=== PATIENT | male | born 1985 | race Caucasian/White ===

== ENCOUNTER 2022-02-04 08:12 | Outpatient (REF) | payer OTHER, SELFPAY ==
--- NOTE | 2022-02-04 08:17 | EEG_ITS ---
This is a 16-channel EEG with an EKG lead. The patient is reported awake during the tracing. Background EEG rhythm is low amplitude, mostly beta with some posterior 10 hertz low amplitude alpha with no obvious asymmetry or paroxysmal tendency. Photic stimulation does not produce any significant abnormality. Hyperventilation is not performed. Cardiac lead does not reveal any significant abnormality. IMPRESSION: Unremarkable EEG. MD JOSE MIGUEL Stanton/SAPNA / [id number]
== END 2022-02-04 08:13 | disposition home or self-care (01) ==
LOC: HO.NEURO 08:12
PROVIDERS: PCP Internal Medicine; Visit Provider Psychiatry & Neurology Neurology
DX: R41.89 Other symptoms and signs involving cognitive functions and awareness (principal); U09.9 Post COVID-19 condition, unspecified
CPT/HCPCS: 95816

== ENCOUNTER 2022-02-09 08:25 | Outpatient (REF) | payer OTHER, SELFPAY ==
--- NOTE | ~2022-02-09 | MR_ITS ---
EXAMINATION: MR BRAIN WITHOUT CONTRAST CLINICAL INFORMATION: Brain fog COMPARISON: None TECHNIQUE: Multiplanar multisequence MR imaging of the brain was obtained without intravenous contrast. FINDINGS: There is no acute infarct on diffusion-weighted imaging. There is no intracranial hemorrhage on iron-sensitive imaging. No extra-axial collection or mass effect/herniation. Normal parenchymal signal characteristics. No hydrocephalus. The ventricles are normal in morphology and size. The major flow voids at the skull base are preserved. The midline structures are normal. The cerebellar tonsils are normally positioned. The craniocervical junction is normal. Marrow signal is within normal limits. The visualized soft tissues are without significant abnormality. No signal abnormality within the paranasal sinuses or within the mastoid air cells. MR/MR head/brain wo con IMPRESSION: Unremarkable noncontrast MRI of the brain.
== END 2022-02-09 08:26 | disposition home or self-care (01) ==
LOC: HO.MRI 08:25
PROVIDERS: Visit Provider Psychiatry & Neurology Neurology
DX: R41.89 Other symptoms and signs involving cognitive functions and awareness (principal); U09.9 Post COVID-19 condition, unspecified
CPT/HCPCS: 70551

== ENCOUNTER → 2022-04-25 14:31 | Outpatient (BNVA) | payer OTHER, SELFPAY | PROVIDERS: PCP Internal Medicine; Visit Provider Psychiatry & Neurology Neurology | DX: R41.89 Other symptoms and signs involving cognitive functions and awareness (principal); U09.9 Post COVID-19 condition, unspecified ==

== ENCOUNTER 2023-05-29 12:03 | Outpatient (AMB) | payer OTHER, SELFPAY ==
--- NOTE | 2023-05-29 12:09 | AM.OFFWIN_ITS ---
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) Intake Note: Patient here for right eye redness that has been present for about 3-4 days and states he has been waking up with it crusted shut Patient Tobacco Use Status: Former Tobacco user Quit Date: 07/05/2007 Allergies acetaminophen [From Vicodin] Allergy (Mild, Verified 05/29/23 12:33) Itching hydrocodone [From Vicodin] Allergy (Mild, Verified 05/29/23 12:33) Itching Medication List - Last Reconciled 05/29/23 by Harvey Montilla MD albuterol 90 mcg/actuation mcg inhalation PRN esomeprazole magnesium (Nexium 24HR) 20 mg PO DAILY Do you need a note to return to daycare/school/sports/work: No 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 Patient is complaining of discharge from the right eye with irritation. Does not wear contact lenses. No symptoms of running nose or congestion. [facility] Medical History ADD (attention deficit disorder) Anxiety PTSD (post-traumatic stress disorder) Surgical History H/O wisdom tooth extraction Family History Mother Breast cancer SLE (systemic lupus erythematosus) Alzheimer disease Colon cancer Father Hypertension Attention deficit disorder Maternal Grandfather Lung cancer Paternal Grandfather Lung cancer Maternal Uncle Colon cancer Social History Alcohol intake: current Alcohol intake frequency: a few times a month Patient Tobacco Use Status: Former Tobacco user Quit Date: 07/05/2007 Physical Exam Vital Signs: Last Vital Signs Pulse 66 05/29/23 12:10 BP 112/78 05/29/23 12:10 Pulse Ox 97 05/29/23 12:10 Oxygen Delivery Method Room Air 05/29/23 12:10 Eyes Other: Right eye: Lower eyelid: Small ulcerated area on the temporal side. Tarsal conjunctiva is congested. Assessment & Plan Assessment & Plan (1) Hordeolum externum right eye, unspecified eyelid: Code(s): H00.013 - Hordeolum externum right eye, unspecified eyelid Plan: Erythromycin ophthalmic ointment. Applied twice a day. If symptoms not better to follow-up here. Coding Level of Care Code Est Pt Level 3 (68563) Diagnoses Hordeolum externum right eye, unspecified eyelid H00.013
[2023-05-29 12:10] VITALS: BP 112/78; PULSE 66; O2SAT 97
== END 2023-05-29 13:13 | disposition home or self-care (01) ==
PROVIDERS: PCP Internal Medicine; Visit Provider Internal Medicine
DX: H00.013 Hordeolum externum right eye, unspecified eyelid (principal)
CPT/HCPCS: 99213

== ENCOUNTER 2024-07-24 07:59 | Outpatient (AMB) | payer OTHER, SELFPAY ==
--- OUTSIDE RECORDS SUMMARY | 2024-07-24 08:02 | XMS_ITS | Encounter Summary ---
Author Name [facility] [place] [facility] [place] Address [address] [place] [address] Care Team Providers Care Retail Coverage Merchandiser Name Role Phone OSCAR MARQUEZ Primary Care Provider Unavailabl e Insurance Providers: All historical and current Section Date Range: From patient's date of to the date document was created. This section includes the names of all active insurance providers for the patient. Insurance Provider Type of Coverage Plan Name Start of Policy Coverage End of Policy Coverage Group Number Member ID Insurance Provider's Telephone Number Policy Guillory's Name Patient's Relationship to Policy Guillory [employer] ([id number]) PRESCRIPT ION RX Mar 27, 2021 [facility] [id number] Jessica LEIGH ENJAMIN PATIENT [employer] ([id number]) PRESCRIPT ION Nov 08, 2016 TA [id number] Jessica LEIGH ENJAMIN PATIENT [facility] MEDICAID [place]ID [place] [facility] Aug 25, [id number] Jessica LEIGH ENJAMIN PATIENT [facility] [place]ICAID [place] [facility] Aug 25, [id number] Jessica LEIGH ENJAMIN PATIENT [facility] MEDICAID [facility] Dec 19, 2018 [id number] Jessica LEIGH ENJAMIN PATIENT MEDICARE (WNR) MEDICARE (M) PART A Aug 25, 2010 PART A [id number] Jessica LEIGH PATIENT MEDICARE (WNR) MEDICARE (M) PART B Aug 25, 2010 PART B [id number] Jessica LEIGH PATIENT [facility] PHUONG CARTER DT Mar 27, 2022 [id number] Jessica LEIGH PATIENT [facility] AIDA BOWENS H Mar 27, 2021 [id number] Jessica LEIGH ENKARISSA PATIENT [facility] POINT OF SERVICE ALISA ESPINOSA T Mar 27, 2021 [id number] [phone] Jessica LEIGH PATIENT Selected Encounter This section includes the information on record at [place] for the Encounter. Date/Time Encounter Type Encounter Description Reason Provider Source May 16, 2024 12:00 PM OFF/OP EST JULY X REQ PHY/QHP EKG ICD-10-CM Z82.49 Family hx of ischem heart dis and oth dis of the JACQUELINE Young [facility] Encounter Template Text not used by [place] Assessments - Encounter Diagnoses This section includes the primary and secondary diagnoses documented for the Encounter. Date/Time Primary/Secondary Diagnosis Diagnosis Name Provider Source May 16, 2024 12:36 PM PRIMARY Family hx of ischem heart dis and oth dis of the MALCOLM Man Plan of Treatment: Future Appointments (+ 6 months) and Future Tests (+/- 45 days) The Plan of Treatment section includes future care activities for the patient from all [place] treatmentfacilities. This section includes future appointments and future orders which are active, pending or scheduled. Future Appointments This section includes appointments that were scheduled to occur 6 months from the date of the Encounter, up to a maximum of 20 appointments. The data comes from all [place] treatment facilities. Appointment Date/Time Appointment Type Appointme nt Facility Name Jun 05, 2024 09:00 AM AMBULATORY - PS[facility]ATRY [facility] Jul 03, 2024 09:00 [facility] July 31, 2024 09:00 AM [facility] August 01, 2024 07:30 AM AMBULATORY - REHAB MEDICIN [facility] [place] Aug 28, 2024 09:00 AM AMBULATORY - [facility] [place] [facility] Sep 09, 2024 02:00 PM AMBULATORY - NONE [facility] [place] Sep 17, 2024 03:30 PM AM[place]UL[place]ORY [place] [facility] Sep 17, 2024 03:30 PM [facility] [place] Active, Pending, and Scheduled Orders This section includes a listing of several types of active, pending, and scheduled orders, including clinic medications orders, diagnostic test orders, procedure orders and consult orders; where thestart date of the order is 45 days before the date of the Encounter or 45 days after the date of the Encounter. The data comes from all [place] treatment facilities. Test Date/Time Test Type Test Details Facility Name Apr 06, 2024 12:00 AM Laboratory - Chemistry Order MICROALBUMIN CREATININE RATIO PANEL URINE (RANDOM) [facility] Apr 06, 2024 12:00 AM Laboratory - Chemistry Order URINALYSIS URINE [facility] Jun 26, 2024 10:08 AM Consult Order VISN 1 [facility]IATRY OUTPT IFC CT Cons Respiratory Support Technician's Choice [facility] [place] Lab Results: +/- 30 days of the encounter This section includes the Chemistry and Hematology Lab Results on record with [place] for the patient. Radiology Reports and Pathology Reports are provided separately, in subsequent sections. Lab Results This section contains the Chemistry/Hematology Results that were resulted 30 days before or 30 daysafter the date of the Encounter. Date/Time Source Result Type Result - Unit Interpretation Reference Range Specimen Type Comment May 16, 2024 01:49 PM [place] CALCIUM SERUM Specimen Type: SERUM No comment entered. Ordering Provider: OSCAR MARQUEZ Report Released Date/Time: Mar 06, 2024 02:12 PM Reporting Lab: [address] [address] Performing Lab: [address] [address] CALCIUM 8.9 mg/dL 8.5-10.2 May 16, 2024 01:49 PM [place] URIC ACID SERUM Sp ecimen Type: SERUM No comment entered. Ordering Provider: OSCAR MARQUEZ Report Released Date/Time: Mar 06, 2024 02:12 PM Reporting Lab: [address] [address] Performing Lab: [address] [address] URIC ACID 5.6 mg/dL 3.5-7.2 May 16, 2024 01:49 PM [place] VITAMIN D (25-OH) SERUM Specimen Type: SERUM No comment entered. Ordering Provider: OSCAR MARQUEZ Report Released Date/Time: Mar 06, 2024 02:12 PM Reporting Lab: [address] [address] Performing Lab: [address] [address] VITAMIN D (25-OH) 31 ng/mL 20-50 May 16, 2024 01:49 PM [place] VITAMIN B12 SERUM Specimen Type: SERUM No comment entered. Ordering Provider: OSCAR MARQUEZ Report Released Date/Time: Mar 06, 2024 02:12 PM Reporting Lab: [address] [address] Performing Lab: [address] [address] VITAMIN B12 486 pg/mL 200-900 May 16, 2024 01:49 PM [place] FERRITIN SERUM Sp ecimen Type: SERUM No comment entered. Ordering Provider: OSCAR MARQUEZ Report Released Date/Time: Mar 06, 2024 02:12 PM Reporting Lab: [address] [address] Performing Lab: [address] [address] FERRITIN 182 ng/mL 20-300 May 16, 2024 01:49 PM [place] HEMOGLOBIN A1C PANEL BLOOD Specimen T ype: BLOOD Comment: Values obtained from A1C measurements can vary. For atypical A1C assays, a reported value of 7.0 could actually be between 6.72 and 7.28 if measured by a reference method. A reported value of 9.0 could actually be between 8.73 and 9.27. Ref: http://www.ngsp.org/CAPdata.asp Ordering Provider: OSCAR MARQUEZ Report Released Date/Time: Mar 06, 2024 02:12 PM Reporting Lab: [facility] [address] [address] Performing Lab: [facility] [address] [address] HEMOGLOBIN A1C 4.5 4.0-5.6 May 16, 2024 01:49 PM [place] TSH SERUM Sp ecimen Type: SERUM No comment entered. Ordering Provider: OSCAR MARQUEZ Report Released Date/Time: Mar 06, 2024 02:12 PM Reporting Lab: [address] [address] Performing Lab: [facility] [address] [address] TSH 1.17 u[IU]/mL 0.35-5.00 May 16, 2024 01:49 PM [place] BNP (Natriuretic Peptide Brain) PLASMA Specimen Type: PLASMA No comment entered. Ordering Provider: OSCAR MARQUEZ Report Released Date/Time: Mar 06, 2024 02:12 PM Reporting Lab: [facility] [address] [address] Performing Lab: [facility] [address] [address] BNP (Natriuretic Peptide Brain) < 10.0 pg/mL 10-100 May 16, 2024 01:49 PM [place] BASIC METABOLIC PANEL (fasting) SERUM Specimen Type: SERUM No comment entered. Ordering Provider: OSCAR MARQUEZ Report Released Date/Time: Mar 06, 2024 02:12 PM Reporting Lab: [facility] [address] [address] Performing Lab: [facility] [address] [address] UREA NITROGEN 14 mg/dL 7-25 GLUCOSE 81 mg/dL 65-100 SODIUM 139 mmol/L 135-145 POTASSIUM 4.4 mmol/L 3.5-5.0 CHLORIDE 106 mmol/L 100-110 CO2 26 meq/L 20-30 CALCIUM 8.9 mg/dL 8.5-10.2 CREATININE, Serum 1.30 mg/dL 0.50-1.40 eGFR(CKD-EPI 2020) 71 mL/min >60 May 16, 2024 01:49 PM [place] LIPID PANEL FASTING SERUM Specimen Ty pe: SERUM No comment entered. Ordering Provider: OSCAR MARQUEZ Report Released Date/Time: Mar 06, 2024 02:12 PM Reporting Lab: [address] [address] Performing Lab: [address] [address] CHOLESTEROL 197 mg/dL TRIGLYCERIDE 68 mg/dL 0-150 LDL calculated 138 mg/dL H 0-129 CHOL/HDL 4.4 HDL CHOLESTEROL 45 mg/dL 40-60 May 16, 2024 01:49 PM [place] LIVER FUNCTION SERUM Specimen Type: SERUM No comment entered. Ordering Provider: OSCAR MARQUEZ Report Released Date/Time: Mar 06, 2024 02:12 PM Reporting Lab: [address] [address] Performing Lab: [address] [address] PROTEIN,TOTAL 7.4 g/dL 6.0-8.3 ALBUMIN 4.3 g/dL 3.5-5.0 ALKALINE PHOSPHATASE 63 U/L 40-150 AST 24 U/L 5-34 ALT 32 U/L BILIRUBIN, TOTAL 0.6 mg/dL 0.2-1.2 May 16, 2024 01:49 PM [place] CBC AND DIFF (AUTO) BLOOD Specimen Ty pe: BLOOD No comment entered. Ordering Provider: OSCAR MARQUEZ Report Released Date/Time: Mar 06, 2024 02:12 PM Reporting Lab: [address] [address] Performing Lab: [address] [address] WBC 7.11 10*3/uL 4.50-11.00 RBC 5.16 10*6/uL 4.23-5.66 HGB 16.2 g/dL 12.8-17 HCT 44.8 39.2-50.4 MCV 86.8 fL 82-99 MCHC 36.2 g/dL H 30.8-35.1 PLT 278 10*3/uL 140-360 RDW-CV 12.6 12.0-16.0 MONO, ABS 0.60 10*3/uL 0.30-1.10 MCH 31.4 pg 26.2-32.6 NEUT % 68.5 43.7-75.8 LYMPH % 21.0 14.0-42.3 MONO % 8.4 5.1-13.7 EOS % 1.1 0.4-6.8 BASO % 0.6 0.1-2.0 NEUT, ABS 4.87 10*3/uL 2.20-7.60 LYMPH, ABS 1.49 10*3/uL 1.00-3.20 EOS, ABS 0.08 10*3/uL 0.03-0.44 BASO, ABS 0.04 10*3/uL 0.01-0.13 IMMATURE GRAN % 0.4 0.0-0.7 IMMATURE GRAN, ABS 0.03 10*3/uL 0.00-0.0 6 NRBC % 0.0 0.0-0.0 NRBC, ABS 0.00 10*3/uL 0.00-0.00 Vital Signs: All taken on the encounter date This section contains inpatient and outpatient Vital Signs collected on the date of the Encounter. Date/Time Temperature Pulse Blood Pressure Respiratory Rate SP02 Pain Height Weight Body Mass Index Source May 16, 2024 12:23 PM 73 119/75 98 172.6 29 [place] Social History: Smoking Status (Most current) and Tobacco Use (All prior to encounter date) This section includes the most current, and the historical, smoking and tobacco- related health factors from the [place] facility where the Encounter took place. Current Smoking Status This section includes the most current smoking, or tobacco-related health factor, from the [place] facility where the Encounter took place. Date/Time Current Smoking Status Comment Claire kerr Mar 06, 2024 02:00 PM [place]-TOBACCO NEVER USED CIGARETTES [place] Tobacco Use History This section includes a history of the smoking, or tobacco-related health factors, that were collected on or before the date of the Encounter. The data comes from the [place] facility where the Encounter took place. Date/Time Smoking Status/Tobacco Use Comment F acility Mar 06, 2024 02:00 PM VA-TOBACCO NEVER U SED OTHER TYPE [place] Feb 08, 2023 08:00 AM VA-TOBACCO FORMER USER [place] Feb 08, 2023 08:00 AM VA-TOBACCO QUIT 5 TO < 15 YRS [place] Jun 18, 2020 09:00 AM VA-TOBACCO FORMER USER [place] Jun 18, 2020 09:00 AM VA-TOBACCO QUIT 15 YRS OR MORE [place] August 01, 2018 03:38 PM VA-TOBACCO NEVER USED [place] Jul 06, 2017 10:33 AM QUIT TOBACCO USE > 7 YEARS AGO [place] Jun 09, 2016 08:41 AM QUIT TOBACCO USE 1 -7 YEARS AGO [place] Apr 01, 2015 09:41 AM QUIT TOBACCO USE > 7 YEARS AGO [place] August 05, 2013 02:26 PM QUIT TOBACCO USE 1 -7 YEARS AGO [place] Jan 24, 2013 02:38 PM QUIT TOBACCO USE 1 -7 YEARS AGO [place] Feb 23, 2012 03:09 PM QUIT TOBACCO USE 1 -7 YEARS AGO pt quite smoking cigaretts in 2007. [place] Mar 11, 2011 02:33 PM CURRENT SMOKER Patient smokes one pack of cigerets every three months. [place] Mar 11, 2011 02:33 PM QUIT TOBACCO USE 1 -7 YEARS AGO [place] Mar 30, 2009 08:38 AM QUIT TOBACCO USE 1 -7 YEARS AGO [place] Mar 11, 2009 01:41 PM QUIT TOBACCO USE I N PAST YEAR [place] Feb 07, 2008 02:05 PM QUIT TOBACCO USE 1 -7 YEARS AGO [place] Encounter Notes: All associated encounter notes This section contains the clinical notes associated to the Encounter. Date/Time Encounter Note(s) Provider Source May 16, 2024 12:36 PM CARDIOLOGY DIAGNOS TIC STUDY CONSULT: LOCAL TITLE: CONSULT REPORT/EKG STANDARD TITLE: CARDIOLOGY DIAGNOSTIC STUDY CONSULT DATE OF NOTE: MAY 16, 2024@12:36 ENTRY DATE: MAY 16, 2024@12:36:34 AUTHOR: MALCOLM FIGUEROA COSIGNER: URGENCY: STATUS: COMPLETED EKG tracing was performed for diagnosis of family history of CAD ordered by HAYES Carmona. Order Information To Service: EKG TRACING/SPOPC OUTPT From Service: [facility] PACT 3 PA NANI Requesting Provider: OSCAR MARQUEZ Service is to be rendered on an OUTPATIENT basis Place: Respiratory Support Technician's choice Urgency: Routine Clinically Ind. Date: Apr 06, 2024 DST ID: Orderable Item: EKG TRACING/SPOPC OUTPT Consult: Consult Request Provisional Diagnosis: Encounter for General Adult Medical Examination without Abnormal Findings(ICD-10-CM Z00.00) Reason For Request: Reason for EKG: family history [place] Age:38 [place] Height:65 in [165.1 cm] (06/18/2020 09:06) Weight:171 lb [77.56 kg] (03/06/2024 13:59) Inter-facility Information This is not an inter-facility consult request. [place] tolerated procedure well and result presented to Dr Omalley for review at time of provider visit today. /atif/ DAMIEN GARCIA RN-BC REGISTERED NURSE Signed: 05/16/2024 12:37 MALCOLM FIGUEROA ROWAN May 16, 2024 12:30 PM PREVENTIVE MEDICIN E NURSING NOTE: LOCAL TITLE: CLINICAL REMINDERS/NURSING STANDARD TITLE: PREVENTIVE MEDICINE NURSING NOTE DATE OF NOTE: MAY 16, 2024@12:30 ENTRY DATE: MAY 16, 2024@12:30:50 AUTHOR: CLEMENTE BRADSHAW EXP COSIGNER: URGENCY: STATUS: COMPLETED Pneumococcal Conjugate Vaccine (PCV15/PCV20): Refuses PCV vaccine Immunization: PNEUMOCOCCAL CONJUGATE, UNSPECIFIED FORMULATION Refusal Reason: PATIENT DECISION Patient refuses all immunization(s) in the PneumoPCV group Date Documented: 05/16/24 12:31 Td / Tdap Immunization: The patient declines to receive the recommended dose of Td/Tdap vaccine. Immunization: TD(ADULT) UNSPECIFIED FORMULATION Refusal Reason: PATIENT DECISION Patient refuses all immunization(s) in the Td group Date Documented: 05/16/24 12:31 COVID-19 Immunization: Refused Moderna Monovalent COVID-19 vaccine Immunization: COVID-19 (MODERNA), MRNA, LNP-S, PF, 50 MCG/0.5 ML (AGES 12+ YEARS) Refusal Reason: VET STATED ALREADY HAD VACCINE Patient refuses all immunization(s) in the COVID-19 group Date Documented: 05/16/24 12:31 /es/ CLEMENTE BRADSHAW LPN Licensed Practical Nurse Signed: 05/16/2024 12:32 CLEMENTE BRADSHAWFIELD
--- OUTSIDE RECORDS SUMMARY | 2024-07-24 08:02 | XMS_ITS | Encounter Summary ---
Author Name [facility] [place] Address [address] [place] [address] Care Team Providers Care Textile Conservator Name Role Phone OSCAR MARQUEZ Primary Care [...] Patient's Relationship to Policy Guillory [facility] ([id number]) PRESCRIPT ION RX Mar 27, 2021 [facility] [id number] [phone] Jessica LEIGH ENJAMIN PATIENT [facility] ([id number]) PRESCRIPT ION Nov 08, 2016 TA [id number] Jessica LEIGH ENJAMIN PATIENT [facility] [place]ICAID [place]ID [place] [facility] Aug 25, [id number] Jessica LEIGH ENJAMIN PATIENT [facility] [place]ID [place] [facility] Aug 25, [id number] Jessica LEIGH ENJAMIN PATIENT [facility] MEDICAID [facility] Dec 19, 2018 [id number] Jessica LEIGH ENJAMIN PATIENT MEDICARE (WNR) MEDICARE (M) PART A Aug 25, 2010 PART A [id number] [phone] Jessica LEIGH PATIENT MEDICARE (WNR) MEDICARE (M) PART B Aug 25, 2010 PART B [id number] 49A [phone] Jessica LEIGHMIN PATIENT [facility] PHUONG CARTER DT Mar 27, 2022 [id number] Jessica LEIGHMIN PATIENT [facility] AIDA BOWENS H Mar 27, 2021 [id number] [phone] Jessica LEIGH ENGMMIN PATIENT [facility] POINT OF SERVICE ALISA ESPINOSA T Mar 27, 2021 [id number] [phone] Jessica LEIGH PATIENT Selected Encounter This section includes the information on record at [place] for the Encounter. Date/Time Encounter Type Encounter Description Reason Provider Source Aug 29, 2023 11:00 AM EXERCISE CLASS HEALTH/WELLBEING [facility] ICD-10-CM Y93.42 Activity, SALEEM Winkler IHReddy Encounter Template Text not used by CT Assessments - Encounter Diagnoses This section includes the primary and secondary diagnoses documented for the Encounter. Date/Time Primary/Secondary Diagnosis Diagnosis Name Provider Source Aug 29, 2023 03:12 PM PRIMARY Activity, ISAEL Winkler [facility] [place] [facility] Plan of Treatment: Future Appointments (+ 6 months) and Future Tests (+/- 45 days) The Plan of Treatment section includes future care activities for the patient from all CT treatmentfacilities. This section includes future appointments and future orders which are active, pending or scheduled. Future Appointments This section includes appointments that were scheduled to occur 6 months from the date of the Encounter, up to a maximum of 20 appointments. The data comes from all CT treatment facilities. Appointment Date/Time Appointment Type Appointme nt Facility Name Aug 30, 2023 08:00 AM AMBULATORY - PSYCHIATRY [facility] [place] [facility] Sep 07, 2023 01:00 PM AMBULATORY - MEDICINE [facility] [place] [facility] Sep 14, 2023 01:00 PM AM[facility]ULATORY [facility]ICINE [facility] [place] [facility] Sep 26, 2023 11:00 AM AMBULATORY - MEDICINE [facility] C [facility] [place] [facility] Sep 27, 2023 08:00 AM AMBULATORY - PS[facility]CHIATRY [facility] [place] [facility] Oct 12, 2023 01:00 PM AMBULATORY - MEDICINE [facility] [place] [facility] Oct 13, 2023 10:00 AM AMBULATORY - MEDICINE [facility] [place] [facility] Oct 13, 2023 11:30 AM AMBULATORY - PS[facility]CHIATRY [facility] [place] [facility] Oct 27, 2023 04:00 PM AMBULATORY - MEDICINE CT C [facility] [place] [facility] Nov 01, 2023 08:00 AM AMBULATORY - PS[facility]CHIATRY [facility] [place] [facility] Nov 29, 2023 08:00 AM AMBULATORY - PS[facility]CHIATRY [facility] [place] [facility] Jan 03, 2024 08:00 AM AMBULATORY - PSYCHIATRY [facility] [place] [facility] Jan 11, 2024 11:00 AM AMBULATORY - PS[facility]CHIATRY [facility] [place] [facility] Jan 31, 2024 09:00 AM AMBULATORY - PSYCHIATRY [facility] [place] [facility] Feb 28, 2024 09:00 AM [facility] Social History: Smoking Status (Most current) and Tobacco Use (All prior to encounter date) This section includes the most current, and the historical, smoking and tobacco- related health factors from the [place] facility where the Encounter took place. Current Smoking Status This section includes the most current smoking, or tobacco-related health factor, from the [place] facility where the Encounter took place. Date/Time Current Smoking Status Comment [facility] Jun 08, 2007 09:39 AM QUIT TOBACCO USE 1 -7 YEARS AGO [facility] Tobacco Use History This section includes a history of the smoking, or tobacco-related health factors, that were collected on or before the date of the Encounter. The data comes from the CT facility where the Encounter took place. Date/Time Smoking Status/Tobac co Use Comment Facility Mar 13, 2006 10:06 AM QUIT TOBACCO USE IN PAST YEAR smoked 2-3 cigarettes a day but quit 2 months ago [facility] Encounter Notes: All associated encounter notes This section contains the clinical notes associated to the Encounter. Date/Time Encounter Note(s) Provider Source Aug 29, 2023 11:00 AM RECREATIONAL THERA PY NOTE: LOCAL TITLE: YOGA WELLBEING STANDARD TITLE: RECREATIONAL THERAPY NOTE DATE OF NOTE: AUG 29, 2023@11:00 ENTRY DATE: AUG 29, 2023@15:06:41 AUTHOR: DELFINO DUENAS COSIGNER: URGENCY: STATUS: COMPLETED Group Yoga Class Total time: 60 minutes Class Focus: Breath awareness, mindful movement, relaxation, and gratitude to balance the nervous system and enhance overall well-being. The Practice: 3-part breath Pranayama for utilizing more of the lungs and calming the nervous system; postures that included, but were not limited to, moving warm-up, half sun salutation, sun salutation A variation, tree, triangle pose, wide leg forward bend, [place] 2, Extended Side Angle Pose, Intense Side Stretch, [place] 1, plank, cobra, locust, downward facing dog, wisdom pose, contralateral limb raises, head to knee pose, bridge, reclined twist, and knees to chest; Systematic Relaxation; and Gratitude. Modifications were geared toward the [place]'s individual needs and preferences. [place] was one of ten participants in Group Yoga. He practiced all the postures offered, using yoga blocks and a yoga strap for support as needed. He was attentive to his breath throughout the session. will return to class as his schedule allows. /atif/ DELFINO DUENAS [id number] Land Development Manager Signed: 08/29/2023 15:[address] [facility]
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
--- OUTSIDE RECORDS SUMMARY | 2024-07-24 08:02 | XMS_ITS | Continuity of Care Document ---
Author Name Radha Diaz Address [address] [place], [place] [id number] [place] [address] Organization Unknown Address [address] [place] [address] Medications No known medications Problems No known problems
--- OUTSIDE RECORDS SUMMARY | 2024-07-24 08:03 | XMS_ITS | Encounter Summary ---
Author Name [facility] [place] Organization [facility] [place] Address [address] [place] [id number] Care Team Providers Care Board Mixer Tender Name Role Phone OSCAR MARQUEZ Primary Care [...] Patient's Relationship to Policy Guillory [employer] [facility] ([id number]) PRESCRIPT ION RX Mar 27, 2021 [facility] [id number] Jessica LEIGH ENJAMIN PATIENT [employer] [facility] ([id number]) PRESCRIPT ION Nov 08, 2016 TA [id number] Jessica LEIGH ENJAMIN PATIENT [facility] MEDICAID [facility]ICAID [facility] Aug 25, [id number] Jessica LEIGH ENJAMIN PATIENT [facility] MEDICAID [place] DEPT HUMAN [facility] Aug 25, [id number] Jessica LEIGH ENJAMIN PATIENT [facility] MEDICAID [facility] Dec 19, 2018 [id number] Jessica LEIGH ENJAMIN PATIENT MEDICARE (WNR) MEDICARE (M) PART A Aug 25, 2010 PART A [id number] Jessica LEIGH ENKARISSA PATIENT MEDICARE (WNR) MEDICARE (M) PART B Aug 25, 2010 PART B [id number] Jessica LEIGH ENJAMIN PATIENT [facility] PHUONG CARTER DT Mar 27, 2022 [id number] Jessica LEIGH ENJAMIN PATIENT [facility] AIDA Ortiz Mar 27, 2021 [id number] Jessica LEIGH ENJAMIN PATIENT [facility] POINT OF SERVICE ALISA Dumont Mar 27, 2021 [id number] [phone] Jessica LEIGH PATIENT Selected Encounter This section includes the information on record at [place] for the Encounter. Date/Time Encounter Type Encounter Description Reason Provider Source Mar 06, 2024 02:00 PM OFFICE O/P EST MOD 30 MIN PRIMARY CARE/MEDICINE ICD-10-CM J45.909 Unspecified asthma, uncomplicated OSCAR MARQUEZ Encounter Template Text not used by [place] Assessments - Encounter Diagnoses This section includes the primary and secondary diagnoses documented for the Encounter. Date/Time Primary/Secondary Diagnosis Diagnosis Name Provider Source Mar 06, 2024 02:24 PM PRIMARY Unspecified asthma, uncomplicated OSCAR MARQUEZ Mar 06, 2024 02:24 PM SECONDARY Family hx of ischem heart dis and oth dis of the circ sys OSCAR MARQUEZ Mar 06, 2024 02:24 PM SECONDARY Gastro-esophageal reflux disease without esophagitis OSCAR MARQUEZ Plan of Treatment: Future Appointments (+ 6 [...] Date/Time Appointment Type Appointme nt Facility Name Apr 03, 2024 09:00 AM AMBULATORY - PS[place]IATRY [place] [facility] [place] [facility] Apr 11, 2024 09:30 AM AMBULATORY - [facility]ATRY [facility] [place] [facility] May 08, 2024 09:00 AM AMBULATORY - PS[facility]IATRY [facility] [place] [facility] May 16, 2024 12:00 PM AMBULATORY - MEDICINE [facility] May 16, 2024 12:30 PM AMBULATORY - MEDICINE [facility] Jun 05, 2024 09:00 AM AMBULATORY - PS[facility]CHIATRY [facility] [place] [facility] Jul 03, 2024 09:00 AM AMBULATORY - PS[facility]IATRY [facility] [place] [facility] July 31, 2024 09:00 AM AMBULATORY - PS[facility]CHIATRY [facility] [place] [facility] August 01, 2024 07:30 AM AMBULATORY - REHAB MEDICIN [facility] [place] [facility] Aug 28, 2024 09:00 AM AMBULATORY - PSYCHIATRY [facility] [place] [facility] Active, Pending, and Scheduled Orders This section includes a listing of several types of active, pending, and scheduled orders, including clinic medications orders, diagnostic test orders, procedure orders and consult orders; where the start date of the order is 45 days before the date of the Encounter or 45 days after the date of theEncounter. The data comes from all [place] treatment facilities. Test Date/Time Test Type Test Details Facility Name Apr 06, 2024 12:00 AM Laboratory - Chemi stry Order URINALYSIS URINE [facility] Apr 06, 2024 12:00 AM Laboratory - Chemi stry Order MICROALBUMIN CREATININE RATIO PANEL URINE (RANDOM) [facility] Vital Signs: All taken on the encounter date This section contains inpatient and outpatient Vital Signs collected on the date of the Encounter. Date/Time Temperature Pulse Blood Pressure Respiratory Rate SP02 Pain Height Weight Body Mass Index Source Mar 06, 2024 01:59 PM 97.4 68 130/85 18 97 171 29 [facility] [place] Social History: Smoking Status (Most current) [...] Date/Time Current Smoking Status Comment Facil ity Mar 06, 2024 02:00 PM VA-TOBACCO NEVER USED CIGARETTES [facility] Tobacco Use History This section includes a history of the smoking, or tobacco-related health factors, that were collected on or before the date of the Encounter. The data comes from the [place] facility where the Encounter took place. Date/Time Smoking Status/Tobacco Use Comment F acility Mar 06, 2024 02:00 PM VA-TOBACCO NEVER U SED OTHER TYPE [facility] Feb 08, 2023 08:00 AM VA-TOBACCO FORMER USER [facility] Feb 08, 2023 08:00 AM VA-TOBACCO QUIT 5 TO < 15 YRS [facility] Jun 18, 2020 09:00 AM VA-TOBACCO FORMER USER [facility] Jun 18, 2020 09:00 AM VA-TOBACCO QUIT 15 YRS OR MORE [facility] August 01, 2018 03:38 PM VA-TOBACCO NEVER USED [facility] Jul 06, 2017 10:33 AM QUIT TOBACCO USE > 7 YEARS AGO [facility] Jun 09, 2016 08:41 AM QUIT TOBACCO USE 1 -7 YEARS AGO [facility] Apr 01, 2015 09:41 AM QUIT TOBACCO USE > 7 YEARS AGO [facility] August 05, 2013 02:26 PM QUIT TOBACCO USE 1 -7 YEARS AGO [facility] Jan 24, 2013 02:38 PM QUIT TOBACCO USE 1 -7 YEARS AGO [facility] Feb 23, 2012 03:09 PM QUIT TOBACCO USE 1 -7 YEARS AGO pt quite smoking cigaretts in 2007. [facility] Mar 11, 2011 02:33 PM CURRENT SMOKER Patient smokes one pack of cigerets every three months. [facility] Mar 11, 2011 02:33 PM QUIT TOBACCO USE 1 -7 YEARS AGO [facility] Mar 30, 2009 08:38 AM QUIT TOBACCO USE 1 -7 YEARS AGO [facility] Mar 11, 2009 01:41 PM QUIT TOBACCO USE I N PAST YEAR [facility] Feb 07, 2008 02:05 PM QUIT TOBACCO USE 1 -7 YEARS AGO [facility] Encounter Notes: All associated encounter notes This section contains the clinical notes associated to the Encounter. Date/Time Encounter Note(s) Provider Source Mar 12, 2024 12:02 PM ADDENDUM: LOCAL TITLE: Addendum STANDARD TITLE: ADDENDUM DATE OF NOTE: MAR 12, 2024@12:02:53 ENTRY DATE: MAR 12, 2024@12:02:54 AUTHOR: JOANN VIVAR COSIGNER: URGENCY: STATUS: COMPLETED Please note the [place] already has a follow-up appointment with PACT 5 in April. He may keep this appointment and stay with PACT 5 at this time. Please change the [place] to [place] PACT 5, Dr. Mi. /es/ JOANN VIVAR NP NURSE PRACTITIONER Signed: 03/12/2024 12:04 Receipt Acknowledged By: 03/12/2024 14:10 /es/ RYAN LEARY ADVANCED POSTPARTUM RN 04/05/2024 09:14 /es/ HALEY VIEYRA BIOTECH PRODUCTION SPECIALIST 03/13/2024 07:58 /es/ ALVARADO GAUTHIER OPERATION RESEARCH ANALYST POSTPARTUM RN --- Original Document --- 03/06/24 HAYES NOTE: S - re-establish care ros: no ch pn no leija +asthma (serv connected) no tia/cva no abd pn +gerd no n/v +hemorrhoids no melena +alterenating BM's sometimes non-bloody diarrhea (4 BM a day) and then 3 days constipation +hx prostatitis; no urgency, dysuria, frequency today +adhd (prob contributory concerning altered BM's) O - HEENT: normocephalic NECK: no bruits not tender and no adeno LUNGS: resp full reg unlabored; CTA b/l COR: RRR, no M ABD: soft, not tender no mas, megaly EXT: no LLE or calf tenderness LABS: none yet A/P - 1) GERD - on Nexium 2) CAD Stable - never ID +FH CAD (father) - CON: EKG at Next Visit 3) Neuro Stable - never CVA/TIA 4) +/- Asthma - undergoing C&P Exam RTC APR 20 - labs before Tobacco Use Screening: The patient has never smoked cigarettes. The patient has never used other types of tobacco. /es/ OSCAR MARQUEZ PA-C STAFF PHYSICIAN MANAGER OF DRILLING Signed: 03/06/2024 14:28 03/08/2024 ADDENDUM STATUS: COMPLETED new patient please assign pact team marmay 21 is best has to labs apr 20 /atif/ OSCAR MARQUEZ PA-C STAFF PHYSICIAN MANAGER OF DRILLING Signed: 03/08/2024 13:10 Receipt Acknowledged By: 03/08/2024 14:53 /atif/ JOANN VIVAR NP NURSE PRACTITIONER 03/08/2024 ADDENDUM STATUS: COMPLETED Approved. Please reassign to [facility] PACT 10 and establish an appointment within the next 60 days. Thank you. /atif/ JOANN VIVAR NP NURSE PRACTITIONER Signed: 03/08/2024 14:54 Receipt Acknowledged By: 03/12/2024 11:13 /atif/ HALEY VIERYA BIOTECH PRODUCTION SPECIALIST 03/12/2024 11:28 /atif/ GURPREET SOTOMAYOR ADVANCED POSTPARTUM RN 03/08/2024 14:56 /es/ ZAIDA ESCALERA Advanced Steward/Stewardess Banquet JOANN VIVAR [facility] Mar 08, 2024 02:54 PM ADDENDUM: LOCAL TITLE: Addendum STANDARD TITLE: ADDENDUM DATE OF NOTE: MAR 08, 2024@14:54:01 ENTRY DATE: MAR 08, 2024@14:54:02 AUTHOR: JOANN VIVAR EXP COSIGNER: URGENCY: STATUS: COMPLETED Approved. Please reassign to [facility] PACT 10 and establish an appointment within the next 60 days. Thank you. /atif/ JOANN VIVAR NP NURSE PRACTITIONER Signed: 03/08/2024 14:54 Receipt Acknowledged By: 03/12/2024 11:13 /atif/ HALEY VIEYRA BIOTECH PRODUCTION SPECIALIST 03/12/2024 11:28 /atif/ GURPREET SOTOMAYOR ADVANCED POSTPARTUM RN 03/08/2024 14:56 /atif/ ZAIDA ESCALERA Advanced Steward/Stewardess Banquet --- Original Document --- 03/06/24 PA NOTE: S - re-establish care ros: no ch pn no leija +asthma (serv connected) no tia/cva no abd pn +gerd no n/v +hemorrhoids no melena +alterenating BM's sometimes non-bloody diarrhea (4 BM a day) and then 3 days constipation +hx prostatitis; no urgency, dysuria, frequency today +adhd (prob contributory concerning altered BM's) O - HEENT: normocephalic NECK: no bruits not tender and no adeno LUNGS: resp full reg unlabored; CTA b/l COR: RRR, no M ABD: soft, not tender no mas, megaly EXT: no LLE or calf tenderness LABS: none yet A/P - 1) GERD - on Nexium 2) CAD Stable - never ID +FH CAD (father) - CON: EKG at Next Visit 3) Neuro Stable - never CVA/TIA 4) +/- Asthma - undergoing C&P Exam RTC APR 20 - labs before Tobacco Use Screening: The patient has never smoked cigarettes. The patient has never used other types of tobacco. /atif/ OSCAR MARQUEZ PA-C STAFF PHYSICIAN MANAGER OF DRILLING Signed: 03/06/2024 14:28 03/08/2024 ADDENDUM STATUS: COMPLETED new patient please assign pact team marmay 21 is best has to labs apr 20 /atif/ OSCAR MARQUEZ PA-C STAFF PHYSICIAN MANAGER OF DRILLING Signed: 03/08/2024 13:10 Receipt Acknowledged By: 03/08/2024 14:53 /atif/ JOANN VIVAR NP NURSE PRACTITIONER JOANN VIVAR Mar 08, 2024 01:10 PM ADDENDUM: LOCAL TITLE: Addendum STANDARD TITLE: ADDENDUM DATE OF NOTE: MAR 08, 2024@13:10:11 ENTRY DATE: MAR 08, 2024@13:10:12 AUTHOR: OSCAR MARQUEZ EXP COSIGNER: URGENCY: STATUS: COMPLETED new patient please assign pact team marmay 21 is best has to labs apr 20 /atif/ OSCAR MARQUEZ PA-C STAFF PHYSICIAN MANAGER OF DRILLING Signed: 03/08/2024 13:10 Receipt Acknowledged By: 03/08/2024 14:53 /tomasa VIVRA NP NURSE PRACTITIONER --- Original Document --- 03/06/24 HAYES NOTE: S - re-establish care ros: no ch pn no leija +asthma (serv connected) no tia/cva no abd pn +gerd no n/v +hemorrhoids no melena +alterenating BM's sometimes non-bloody diarrhea (4 BM a day) and then 3 days constipation +hx prostatitis; no urgency, dysuria, frequency today +adhd (prob contributory concerning altered BM's) O - HEENT: normocephalic NECK: no bruits not tender and no adeno LUNGS: resp full reg unlabored; CTA b/l COR: RRR, no M ABD: soft, not tender no mas, megaly EXT: no LLE or calf tenderness LABS: none yet A/P - 1) GERD - on Nexium 2) CAD Stable - never ID +FH CAD (father) - CON: EKG at Next Visit 3) Neuro Stable - never CVA/TIA 4) +/- Asthma - undergoing C&P Exam RTC APR 20 - labs before Tobacco Use Screening: The patient has never smoked cigarettes. The patient has never used other types of tobacco. /atif/ OSCAR MARQUEZ PA-C STAFF PHYSICIAN MANAGER OF DRILLING Signed: 03/06/2024 14:28 OSCAR MARQUEZ Mar 06, 2024 02:00 PM PREVENTIVE MEDICIN E NURSING NOTE: LOCAL TITLE: CLINICAL REMINDERS/NURSING STANDARD TITLE: PREVENTIVE MEDICINE NURSING NOTE DATE OF NOTE: MAR 06, 2024@14:00 ENTRY DATE: MAR 06, 2024@14:00:07 AUTHOR: CECILIA ELIZABETH EXP COSIGNER: URGENCY: STATUS: COMPLETED Influenza Immunization: The patient has received the seasonal influenza vaccine for the current season at another location. Documented: INFLUENZA, UNSPECIFIED FORMULATION Historical Date Administered: Dec 2023 Exact date unknown Outside Location: [facility] Information Source: FROM OTHER REGISTRY Td / Tdap Immunization: Prior Td vaccination The patient may have been vaccinated in the past but written documentation of vaccination is not available today. Patient instructed to obtain a written record of the prior vaccine and bring it to the next appointment. COVID-19 Immunization: Vaccine given previously - no written/electronic documentation available The patient was instructed to bring a copy of their COVID-19 vaccine information to their next appointment so that this can be accurately recorded in their [facility]. RHS Screen: RHS Screen Environmental Check Upon inquiry, the individual reports that the environment is safe to proceed. Informed Consent to Screen and Document The individual does NOT consent to proceed with screening. Advance Directive Screen MH AD: Patient has an up-to-date Advance Directive at an outside, non-va facility and was asked to forward a copy to his/her clinician. Lipid Screening: Lipid profile ordered at this encounter by pcp. /atif/ CECILIA ELIZABETH LPN LICENSED PRACTICAL NURSE Signed: 03/06/2024 14:22 CEICLIA ELIZABETH [facility] Mar 06, 2024 01:54 PM PHYSICIAN ASSISTAN T NOTE: LOCAL TITLE: PA NOTE STANDARD TITLE: PHYSICIAN MANAGER OF DRILLING NOTE DATE OF NOTE: MAR 06, 2024@13:54 ENTRY DATE: MAR 06, 2024@13:54:58 AUTHOR: OSCAR MARQUEZ EXP COSIGNER: URGENCY: STATUS: COMPLETED HAYES NOTE Has ADDENDA S - re-establish care ros: no ch pn no leija +asthma (serv connected) no tia/cva no abd pn +gerd no n/v +hemorrhoids no melena +alterenating BM's sometimes non-bloody diarrhea (4 BM a day) and then 3 days constipation +hx prostatitis; no urgency, dysuria, frequency today +adhd (prob contributory concerning altered BM's) O - HEENT: normocephalic NECK: no bruits not tender and no adeno LUNGS: resp full reg unlabored; CTA b/l COR: RRR, no M ABD: soft, not tender no mas, megaly EXT: no LLE or calf tenderness LABS: none yet A/P - 1) GERD - on Nexium 2) CAD Stable - never ID +FH CAD (father) - CON: EKG at Next Visit 3) Neuro Stable - never CVA/TIA 4) +/- Asthma - undergoing C&P Exam RTC APR 20 - labs before Tobacco Use Screening: The patient has never smoked cigarettes. The patient has never used other types of tobacco. /atif/ OSCAR MARQUEZ PA-C STAFF PHYSICIAN MANAGER OF DRILLING Signed: 03/06/2024 14:28 03/08/2024 ADDENDUM STATUS: COMPLETED new patient please assign pact team marmay 21 is best has to labs apr 20 /es/ OSCAR MARQUEZ PA-C STAFF PHYSICIAN MANAGER OF DRILLING Signed: 03/08/2024 13:10 Receipt Acknowledged By: 03/08/2024 14:53 /es/ JOANN VIVAR NP NURSE PRACTITIONER 03/08/2024 ADDENDUM STATUS: COMPLETED Approved. Please reassign to [facility] PACT 10 and establish an appointment within the next 60 days. Thank you. /es/ JOANN VIVAR NP NURSE PRACTITIONER Signed: 03/08/2024 14:54 Receipt Acknowledged By: 03/12/2024 11:13 /es/ HALEY VIEYRA BIOTECH PRODUCTION SPECIALIST 03/12/2024 11:28 /es/ GURPREET SOTOMAYOR ADVANCED POSTPARTUM RN 03/08/2024 14:56 /es/ ZAIDA ESCALERA Advanced Steward/Stewardess Banquet 03/12/2024 ADDENDUM STATUS: COMPLETED Please note the already has a follow-up appointment with PACT 5 in April. He may keep this appointment and stay with PACT 5 at this time. Please change the [place] to [place] PACT 5, Dr. Mi. /atif/ JOANN VIVAR NP NURSE PRACTITIONER Signed: 03/12/2024 12:04 Receipt Acknowledged By: * AWAITING SIGNATURE * RYAN LEARY * AWAITING SIGNATURE * HALEY VIEYRA * AWAITING SIGNATURE * ALVARADO GAUTHIER [place]
--- OUTSIDE RECORDS SUMMARY | 2024-07-24 08:03 | XMS_ITS | Clinical Summary ---
Author Organization [facility] Address [address] [place] [address] Care Team Providers Care Four H Agent Name Role Phone Alli Myers MD Primary Care Provider [phone] Social History Tobacco Use Types Packs/Day Years Used Date Smoking Tobacco: Never Assessed Sex and Gender Information Value Date Recorded Sex Assigned at Not on file Gender Identity Not on file Sexual Orientation Not on file Plan of Treatment Not on file Care Teams Four H Agent Relationship Specialty Start Date End Date Alli Myers MD [address] [place] [id number] PCP - General Internal Medicine 07/11/19
--- OUTSIDE RECORDS SUMMARY | 2024-07-24 08:03 | XMS_ITS | Encounter Summary ---
Author Organization [facility] Address [address] [place] [address] Care Team Providers Care Chocolate Coater Name Role Phone Derrick Olea MD Primary Care Provider Encounter Details Date Type Department Care Team (Latest Contact Info) Description 07/18/2024 9:33 AM EDT - 07/18/2024 11:59 PM EDT Hospital Encounter [facility] - [place] [address] [place] [phone] Upper respiratory tract infection, unspecified type; Frontal sinus pain; Pain of maxillary sinus Discharge Disposition: Home or Self Care Social History Tobacco Use Types Packs/Day Years Used Date Smoking Tobacco: Former Cigarettes Q uit: 07/05/2007 Smokeless Tobacco: Never Alcohol Use Standard Drinks/Week Comments Yes 0 (1 standard drink = 0.6 oz pur e alcohol) once a week Sex and Gender Information Value Date Recorded Sex Assigned at Not on file Legal Sex Male 9:58 AM EST Gender Identity Not on file Sexual Orientation Not on file documented as of this encounter Medications at Time of Discharge benzonatate (TESSALON) 100 mg capsule Take 1 capsule (100 mg total) by mouth 3 (three) times a day if needed for cough. Do not crush or chew. 42 capsule 07/18/2024 EPINEPHrine (EpiPen 2-Braden) 0.3 mg/0.3 mL injection Inject 0.3 mL (0.3 mg total) into the thigh. 09/07/2023 ergocalciferol (VITAMIN D-2) 1,250 mcg (50,000 unit) capsule Take 1 capsule (50,000 Units total) by mouth. 02/23/2023 esomeprazole (NexIUM) [address] capsule TAKE 1 CAPSULE BY MOUTH EVERY DAY IN THE MORNING BEFORE BREAKFAST 12/19/2023 lisdexamfetamine (Vyvanse) 20 mg capsule Take 1 capsule (20 mg total) by mouth 1 (one) time each day. 06/19/2023 multivit-min/joseph ashli fumarate (MULTI VITAMIN ORAL) Take by mouth. predniSONE (DELTASONE) 20 mg tablet Take 60 mg PO daily for 3 days, then take 40 mg PO daily for 3 days, then 20 mg PO daily for 3 days, then stop 18 tablet 07/18/2024 documented as of this encounter Discharge Disposition Disposition Code Departure Means Destination Home or Self Care documented in this encounter Plan of Treatment Upcoming Encounters Date Type Department Care Team (Late st Contact Info) Description 09/09/2024 2:00 PM EDT Appointment [facility] [address] [place] [phone] Yinka Velarde MD [address] [facility] [address] [place] [address] documented as of this encounter Procedures Procedure Name Priority Date/Time Associated Diagnosis Comments XR PARANASAL SINUSES 3+ VIEWS Routine 07/18/2024 9:41 AM EDT Upper respiratory tract infection, unspecified type Frontal sinus pain Pain of maxillary sinus documented in this encounter Results * XR Paranasal Sinuses 3+ Views (07/18/2024 9:41 AM EDT) Anatomical Region Laterality Modality Head and Neck Radiographic Yohana ging 07/18/2024 9:56 AM EDT Impressions 07/18/2024 9:57 AM EDT Normal study. -------- FINAL REPORT -------- Dictated By: Oriana Hernandez Dictated Date: 07/18/2024 09:56 ET Assigned Physician: Oriana Hernandez Reviewed and Electronically Signed By: Oriana Hernandez Signed Date: 07/18/2024 09:57 ET Workstation ID: [id number] Transcribed By: Self Edit Transcribed Date: 07/18/2024 09:56 ET Narrative 07/18/2024 9:57 AM EDT XR PARANASAL SINUSES 3+ VIEWS HISTORY: Nasal congestion.. Maxillary, frontal sinus pain. PRIORS: None. FINDINGS: The paranasal sinuses are grossly clear. ??No displaced fractures are seen. ??The orbits are normal and symmetric in appearance. Procedure Note Oriana Hernandez MD - 07/18/2024 XR PARANASAL SINUSES 3+ VIEWS HISTORY: Nasal congestion.. Maxillary, frontal sinus pain. PRIORS: None. FINDINGS: The paranasal sinuses are grossly clear. No displaced fractures are seen.The orbits are normal and symmetric in appearance. IMPRESSION: Normal study. -------- FINAL REPORT -------- Dictated By: Oriana Hernandez Dictated Date: 07/18/2024 09:56 ET Assigned Physician: Oriana Hernandez Reviewed and Electronically Signed By: Oriana Hernandez Signed Date: 07/18/2024 09:57 ET Workstation ID: [id number] Transcribed By: Self Edit Transcribed Date: 07/18/2024 09:56 ET us Derrick Olea MD IMG XR PROCEDURES Final Res ult documented in this encounter Visit Diagnoses Diagnosis Upper respiratory tract infection, unspecified type Frontal sinus pain Pain of maxillary sinus documented in this encounter Care Teams Chocolate Coater Relationship Specialty Start Date End Date Derrick Olea MD [address] [facility] [place] [address] PCP - General 06/09/22 documented as of this encounter
--- OUTSIDE RECORDS SUMMARY | 2024-07-24 08:03 | XMS_ITS | Continuity of Care Document ---
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 It does not include entries that were removed or entered in error. Problem Status Onset Date Problem Type Date of Resolution Comments Source Asthma Active Condition Mar 06 Entered By: OSCAR MARQUEZ Comment: Undergoing C&P for [facility]atic Sx [facility] Entered By: OSCAR MARQUEZ Comment: CXR Done Outside MAR 19: Result? [facility] Attention deficit hyperactivity disorder [facility] Chronic post-traumatic stress disorder (SNOMED CT 555677233) Active [facility] Exposure to potentially hazardous substance Active Condition Mar 01, 2024 Entered By: EVGENY CRAMER Comment: [place] [employer] [facility] Exam - 4Dec 2023 Entered By: EVGENY CRAMER Comment: Contact with and Suspected Exposure to Environmental Pollution (burn pits)Mar 01, 2024 Entered By: EVGENY CRAMER Comment: Other Contact with and (Suspected) Exposures Hazardous Substances (oil well fire smoke, sand, dust, fine PM, aircraft exhaust, generator exhaust, solvents, oil, TYLOR-8 fuel)Mar 01, 2024 Entered By: EVGENY CRAMER Comment: Contact with and Suspected Exposure to Noise (helicopters)De c 2023 Entered By: EVGENY CRAMER Comment: Exposure to Disaster, War, or Other Hostilities [place] [facility] FH: premature coronary heart disease Active Condition Mar 06, 2024 Entered By: OSCAR MARQUEZ Comment: Father w/ AMI x 4; CABG x 2; CAD Started at 38 y/o [facility] Gastroesophageal reflux disease (SNOMED CT 703361263) [facility] Irritable bowel syndrome characterized by alternating bowel habit Active Condition Mar 06, 2024 Entered By: OSCAR MARQUEZ Comment: May or May Not Have IBS; Does Have Alterations Bowel Habits ODON Low back pain Active Condition [facility] INHALATION OF NOXIOUS GASES SMOKE Inactive Condition INHALATION OF NOXIOUS GASES SMOKE [facility] BACK STRAIN Inactive Condition BACK STRAIN [facility] MULTIPLE NONVENOMOUS INSECT BITES Inactive Condition MULTIPLE NONVENOMOUS INSECT BITES [facility] UPPER RESPIRATORY INFECTION Inactive Condition UPPER RESPIRATORY INFECTION [facility] UPPER RESPIRATORY INFECTION ACUTE Inactive Condition UPPER RESPIRATORY INFECTION ACUTE [facility] ANKLE SPRAIN Inactive Condition [facility] visit for: screening exam Inactive Condition [facility] Diagnosis: ICD-10-CM F43.12 Post-traumatic stress disorder, chronic Active Diagnosis [facility] Diagnosis: ICD-10-CM J45.909 Unspecified asthma, uncomplicated Active Diagnosis [facility] Diagnosis: ICD-10-CM Z13.6 Encounter for screening for cardiovascular disorders Active Diagnosis [facility] Diagnosis: ICD-10-CM Z82.49 Family hx of ischem heart dis and oth dis of the circ sys Active Diagnosis [facility] Diagnosis: ICD-10-CM F90.9 Attention-deficit hyperactivity disorder, unspecified type Active Diagnosis [facility] Diagnosis: ICD-10-CM Z77.29 Contact with and exposure to other hazardous substances Active Diagnosis [place] [facility] Diagnosis: ICD-10-CM Y93.42 Activity, yoga Active Diagnosis [facility] Medications Combined list of outpatient medications from Department of Defense and Veterans Affairs facilities.Medications provided include 1) outpatient medications from the last 15 months, and 2) patient-reported medications. Medication Details Route Status Patient Instructions Prescription Expires Prescription Number Last Dispense Date Ordering Provider Order Date Order Qty Source ALBUTEROL 90MCG/ACTUA T (CFC-F) INHL,ORAL,8 .5GM DOSE COUNTER INHALE 1 PUFF BY MOUTH EVERY 6 HOURS NEEDED FOR ASTHMA ATTACK RESPIR ATORY (INHAL ATION) ACTIVE 05/17/2025 [id number] ELIZABETH DOUGLAS 2024 [place] EPINEPHRINE (EQV-EPI-PE N) 0.3MG/0.3ML INJECTOR INJECT DIRECTED INTRAMUS CULARLY ONCE NEEDED FOR LIFE THREATEN ING ALLERGIC REACTION IF ONGOING SYMPTOMS AFTER INITIAL DOSING MAY ADMINIST ER SECOND DOSE IN 5 TO 15 MINUTES IF ONGOING SYMPTOMS AFTER INITIAL DOSING MAY ADMINIST ER SECOND DOSE IN 5 TO 15 MINUTES INTRAM USFATOULA R 07/19/2024 [id number] SERA CERVANTES 2024 2 [place] ESOMEPRAZOL E (EQV-NEXIUM ) CAP,EC TAKE BY MOUTH ONCE DAILY ORAL ACTIVE MONTY MARQUEZ 2023 [place] LISDEXAMFET AMINE DIMESYLATE 20MG CAP,ORAL TAKE ONE CAPSULE BY MOUTH ONCE DAILY FOR ADHD NEXT FILL 05/09/24* * ORAL 05/11/2024 [id number] Viridiana TORRES 2024 30 [place] LISDEXAMFET AMINE DIMESYLATE 20MG CAP,ORAL TAKE ONE CAPSULE BY MOUTH ONCE DAILY FOR ADHD NEXT FILL 02/09/24 ORAL 02/10/2024 [id number] Viridiana TORRES 2023 30 [place] LISDEXAMFET AMINE DIMESYLATE 20MG CAP,ORAL TAKE ONE CAPSULE BY MOUTH ONCE DAILY FOR ADHD NEXT FILL 11/13/23* * ORAL 11/12/2023 [id number] Viridiana TORRES 2023 30 [place] LISDEXAMFET AMINE DIMESYLATE 20MG CAP,ORAL TAKE ONE CAPSULE BY MOUTH ONCE DAILY FOR ADHD NEXT FILL 07/17/23* * ORAL 07/16/2023 [id number] Viridiana TORRES 2023 30 [place] Lisdexamfet amine Dimesylate 20mg, (Vyvanse), Capsule, Oral TAKE ONE CAPSULE BY MOUTH ONCE DAILY FOR ADHD NEXT FILL 07/17/23* * 07/16/2023 [id number] KIKO TORRES 2023 30 [facility] PANTOPRAZOL E NA 40MG TAB,EC TAKE ONE TABLET BY MOUTH EVERY MORNING 30 MINUTES BEFORE BREAKFAS T ORAL ACTIVE 05/17/2025 [id number] ELIZABETH DOUGLAS Allie 2024 90 [place] Allergies, Adverse Reactions, Alerts Combined list of allergies from Department of Defense and Veterans Affairs facilities. It does not include entries that were removed or entered in error. Substance Category Reaction Severity Reaction type Status Date Reported Comments Source NO OUTPUT FOR NCID [id number] Drug allergy (disorder) active 6 [facility] SHELLFISH Propensity to adverse reactions to food (finding) Eruption, Urticaria MILD active 3 [facility] [place] [facility] Immunizations Combined list of available immunizations from the Department of Defense and Veterans Affairs facilities. Immunization Series Date Given Administered By Site Reaction Lot Number CVX Code Drug Oil Expeller Status Comments Source INFLUENZA, UNSPECIFIED FORMULATION 2023 88 complet ed HISTORICA L INFORMATI ON - [facility] INFLUENZA, INJECTABLE, QUADRIVALENT, PRESERVATIVE FREE 2020 150 complet ed [place] INFLUENZA, INJECTABLE, QUADRIVALENT, PRESERVATIVE FREE 2020 150 complet ed [place] PNEUMOCOCCAL POLYSACCHARID E PPV23 2020 33 complet ed [place] COVID-19 (PFIZER), MRNA, LNP-S, PF, 30 MCG/0.3 ML DOSE 2 2020 208 complet ed [facility] [place] COVID-19 (PFIZER), MRNA, LNP-S, PF, 30 MCG/0.3 ML DOSE 1 2020 208 complet ed [facility] INFLUENZA, SEASONAL, INJECTABLE 2017 141 complet ed stated at [facility] y [facility] FLU,3 YRS (HISTORICAL) 2015 88 complet ed [place] [facility] FLU,3 YRS (HISTORICAL) 2015 88 complet ed [place] FLU,3 YRS (HISTORICAL) 2012 88 complet ed Site: Right Deltoid [place] FLU,3 YRS (HISTORICAL) 2011 88 complet ed Site: Left Deltoid [place] FLU,3 YRS (HISTORICAL) 2010 88 complet ed Site: Left Deltoid [place] FLU,3 YRS (HISTORICAL) 2008 88 complet ed Site: Left Deltoid [place] DTAP, UNSPECIFIED FORMULATION 2007 107 complet ed [facility] D[facility]light [facility]CHU [facility] Results Combined list of recent chemistry, hematology and other laboratory results from Department of Defense and Veterans Affairs, ranging from 15 months to all on record, depending upon the facility. Order Name Results Value Reference Range Date Interpretation Specimen Comments Source CALCIUM CALCIUM [MASS/VOLUM E] IN SERUM OR PLASMA 8.9 mg/dL 8.5 - 10.2 05/16 Specimen Type: SERUM No comment entered. Ordering Provider: OSCAR MARQUEZ Report Released Date/Time: Mar 06, 2024 02:12 PM Reporting Lab: [facility] [address] [facility] [address] Performing Lab: [facility] Project Green[address] [address] [place] URIC ACID URATE [MASS/VOLUM E] IN SERUM OR PLASMA 5.6 mg/dL 3.5 - 7.2 05/16 Specimen Type: SERUM No comment entered. Ordering Provider: OSCAR MARQUEZ Report Released Date/Time: Mar 06, 2024 02:12 PM Reporting Lab: [facility] Project [facility]USEPHEL[facility] [address] [address] Performing Lab: [facility] Project GreenUSE[address] [address] [place] VITAMIN D (25-OH) 25-HYDROXYV ITAMIN D3 [MASS/VOLUM E] IN SERUM OR PLASMA 31 ng/mL 20 - 50 05/16 Specimen Type: SERUM No comment entered. Ordering Provider: OSCAR MARQUEZ Report Released Date/Time: Mar 06, 2024 02:12 PM Reporting Lab: [facility] Project [facility]USEPHELPS [facility] [address] [address] Performing Lab: [facility] D.light DesignUSE[address] [address] [place] VITAMIN B12 COBALAMIN (VITAMIN B12) [MASS/VOLUM E] IN SERUM OR PLASMA 486 pg/mL 200 - 900 05/16 Specimen Type: SERUM No comment entered. Ordering Provider: OSCAR MARQUEZ Report Released Date/Time: Mar 06, 2024 02:12 PM Reporting Lab: [address] [address] Performing Lab: [address] [address] [place] FERRITIN FERRITIN [MASS/VOLUM E] IN SERUM OR PLASMA 182 ng/mL 20 - 300 05/16 Specimen Type: SERUM No comment entered. Ordering Provider: OSCAR MARQUEZ Report Released Date/Time: Mar 06, 2024 02:12 PM Reporting Lab: [address] [address] Performing Lab: [address] [address] [place] HEMOGLOBI N A1C PANEL HEMOGLOBIN A1C/HEMOGLO BIN.TOTAL IN BLOOD BY HPLC 4.5 4.0 - 5.6 05/16 Specimen Type: BLOOD Comment: Values obtained from A1C measurement s can vary. For atypical A1C assays, a reported value of 7.0 could actually be between 6.72 and 7.28 if measured by a reference method. A reported value of 9.0 could actually be between 8.73 and 9.27. Ref: http://www. ngsp.org/[place] Pdata.asp Ordering Provider: OSCAR MARQUEZ Report Released Date/Time: Mar 06, 2024 02:12 PM Reporting Lab: [address] [address] Performing Lab: [address] [address] [place] TSH THYROTROPIN [UNITS/VOLU ME] IN SERUM OR PLASMA 1.17 u[IU]/ mL 0.35 - 5.00 05/16 Specimen Type: SERUM No comment entered. Ordering Provider: OSCAR MARQUEZ Report Released Date/Time: Mar 06, 2024 02:12 PM Reporting Lab: [address] [address] Performing Lab: [facility] [address] [address] [place] BNP (Natriure tic Peptide Brain) NATRIURETIC PEPTIDE B [MASS/VOLUM E] IN SERUM OR PLASMA < 10.0pg /mL 10 - 100 05/16 Specimen Type: PLASMA No comment entered. Ordering Provider: OSCAR MARQUEZ Report Released Date/Time: Mar 06, 2024 02:12 PM Reporting Lab: [facility] [address] [facility] [address] Performing Lab: [facility] [address] [facility] [address] [place] LIPID PANEL FASTING CHOLESTEROL [MASS/VOLUM E] IN SERUM OR PLASMA 197 mg/dL 05/16 Specimen Type: SERUM No comment entered. Ordering Provider: OSCAR MARQUEZ Report Released Date/Time: Mar 06, 2024 02:12 PM Reporting Lab: [facility] [address] [facility] [address] Performing Lab: [facility] [address] [facility] [address] [place] LIPID PANEL FASTING TRIGLYCERID E [MASS/VOLUM E] IN SERUM OR PLASMA 68 mg/dL 0 - 150 05/16 Specimen Type: SERUM No comment entered. Ordering Provider: OSCAR MARQUEZ Report Released Date/Time: Mar 06, 2024 02:12 PM Reporting Lab: [facility] [address] [facility] [address] Performing Lab: [address] [address] [place] LIPID PANEL FASTING CHOLESTEROL IN LDL [MASS/VOLUM E] IN SERUM OR PLASMA BY CALCULATION 138 mg/dL 0 - 129 05/16 H Specimen Type: SERUM No comment entered. Ordering Provider: OSCAR MARQUEZ Report Released Date/Time: Mar 06, 2024 02:12 PM Reporting Lab: [address] [address] Performing Lab: [address] [address] [place] LIPID PANEL FASTING CHOLESTEROL .TOTAL/CHOL ESTEROL IN HDL [MASS RATIO] IN SERUM OR PLASMA 4.4 05/16 Specimen Type: SERUM No comment entered. Ordering Provider: OSCAR MARQUEZ Report Released Date/Time: Mar 06, 2024 02:12 PM Reporting Lab: [address] [address] Performing Lab: [address] [address] [place] LIPID PANEL FASTING CHOLESTEROL IN HDL [MASS/VOLUM E] IN SERUM OR PLASMA 45 mg/dL 40 - 60 05/16 Specimen Type: SERUM No comment entered. Ordering Provider: OSCAR MARQUEZ Report Released Date/Time: Mar 06, 2024 02:12 PM Reporting Lab: [address] [address] Performing Lab: [address] [address] [place] CBC AND DIFF (AUTO) LEUKOCYTES [#/VOLUME] IN BLOOD BY AUTOMATED COUNT 7.11 10*3/u L 4.50 - 11.00 05/16 Specimen Type: BLOOD No comment entered. Ordering Provider: OSCAR MARQUEZ Report Released Date/Time: Mar 06, 2024 02:12 PM Reporting Lab: [address] [address] Performing Lab: [address] [address] [place] CBC AND DIFF (AUTO) ERYTHROCYTE S [#/VOLUME] IN BLOOD BY AUTOMATED COUNT 5.16 10*6/u L 4.23 - 5.66 05/16 Specimen Type: BLOOD No comment entered. Ordering Provider: OSCAR MARQUEZ Report Released Date/Time: Mar 06, 2024 02:12 PM Reporting Lab: [facility] [address] [address] Performing Lab: [address] [address] [place] CBC AND DIFF (AUTO) HEMOGLOBIN [MASS/VOLUM E] IN BLOOD 16.2 g/dL 12.8 - 17 05/16 Specimen Type: BLOOD No comment entered. Ordering Provider: OSCAR MARQUEZ Report Released Date/Time: Mar 06, 2024 02:12 PM Reporting Lab: [facility] [address] [address] Performing Lab: [facility] [address] [address] [place] CBC AND DIFF (AUTO) HEMATOCRIT [VOLUME FRACTION] OF BLOOD BY AUTOMATED COUNT 44.8 39.2 - 50.4 05/16 Specimen Type: BLOOD No comment entered. Ordering Provider: OSCAR MARQUEZ Report Released Date/Time: Mar 06, 2024 02:12 PM Reporting Lab: [facility] [address] [address] Performing Lab: [address] [address] [place] CBC AND DIFF (AUTO) MCV [ENTITIC VOLUME] BY AUTOMATED COUNT 86.8 fL 82 - 99 05/16 Specimen Type: BLOOD No comment entered. Ordering Provider: OSCAR MARQUEZ Report Released Date/Time: Mar 06, 2024 02:12 PM Reporting Lab: [address] [address] Performing Lab: [address] [address] [place] CBC AND DIFF (AUTO) MCHC [MASS/VOLUM E] BY AUTOMATED COUNT 36.2 g/dL 30.8 - 35.1 05/16 H Specimen Type: BLOOD No comment entered. Ordering Provider: OSCAR MARQUEZ Report Released Date/Time: Mar 06, 2024 02:12 PM Reporting Lab: [facility] [address] [address] Performing Lab: [facility] [address] [address] [place] CBC AND DIFF (AUTO) PLATELETS [#/VOLUME] IN BLOOD BY AUTOMATED COUNT 278 10*3/u L 140 - 360 05/16 Specimen Type: BLOOD No comment entered. Ordering Provider: OSCAR MARQUEZ Report Released Date/Time: Mar 06, 2024 02:12 PM Reporting Lab: [facility] [place] [address] [address] Performing Lab: [place] [facility] [address] [address] [place] CBC AND DIFF (AUTO) ERYTHROCYTE DISTRIBUTIO N WIDTH [RATIO] BY AUTOMATED COUNT 12.6 12.0 - 16.0 05/16 Specimen Type: BLOOD No comment entered. Ordering Provider: OSCAR MARQUEZ Report Released Date/Time: Mar 06, 2024 02:12 PM Reporting Lab: [facility] [place] [address] [address] Performing Lab: [facility]ITALRL TRN [facility] [address] [address] [place] CBC AND DIFF (AUTO) MONOCYTES [#/VOLUME] IN BLOOD BY AUTOMATED COUNT 0.60 10*3/u L 0.30 - 1.10 05/16 Specimen Type: BLOOD No comment entered. Ordering Provider: OSCAR MARQUEZ Report Released Date/Time: Mar 06, 2024 02:12 PM Reporting Lab: [facility] [place] [address] [address] Performing Lab: [facility] [place] [address] [address] [place] CBC AND DIFF (AUTO) MCH [ENTITIC MASS] BY AUTOMATED COUNT 31.4 pg 26.2 - 32.6 05/16 Specimen Type: BLOOD No comment entered. Ordering Provider: OSCAR MARQUEZ Report Released Date/Time: Mar 06, 2024 02:12 PM Reporting Lab: [facility] [place] [address] [address] Performing Lab: [facility]ITAL[facility] [address] [address] [place] CBC AND DIFF (AUTO) NEUTROPHILS /100 LEUKOCYTES IN BLOOD BY AUTOMATED COUNT 68.5 43.7 - 75.8 05/16 Specimen Type: BLOOD No comment entered. Ordering Provider: OSCAR MARQUEZ Report Released Date/Time: Mar 06, 2024 02:12 PM Reporting Lab: [facility] [address] [address] Performing Lab: [place] [facility]TR[facility]ITALTRN [facility]ITALUSETS [address] [address] [place] CBC AND DIFF (AUTO) LYMPHOCYTES /100 LEUKOCYTES IN BLOOD BY AUTOMATED COUNT 21.0 14.0 - 42.3 05/16 Specimen Type: BLOOD No comment entered. Ordering Provider: OSCAR MARQUEZ Report Released Date/Time: Mar 06, 2024 02:12 PM Reporting Lab: [facility]ITALRNOR[facility] HOSPITALTRN [facility]PITALUSE[address] [address] Performing Lab: [facility]ITALR[facility]OSPITALTRN [facility]ITALUSE[address] [address] [place] CBC AND DIFF (AUTO) MONOCYTES/1 00 LEUKOCYTES IN BLOOD BY AUTOMATED COUNT 8.4 5.1 - 13.7 05/16 Specimen Type: BLOOD No comment entered. Ordering Provider: OSCAR MARQUEZ Report Released Date/Time: Mar 06, 2024 02:12 PM Reporting Lab: [facility]ITALRNOR[facility] HOSPITALTRN [facility]ITALUSE[address] [address] Performing Lab: [facility]ITALRL TRN [facility]OSPITALUSETS [address] [address] [place] CBC AND DIFF (AUTO) EOSINOPHILS /100 LEUKOCYTES IN BLOOD BY AUTOMATED COUNT 1.1 0.4 - 6.8 05/16 Specimen Type: BLOOD No comment entered. Ordering Provider: OSCAR MARQUEZ Report Released Date/Time: Mar 06, 2024 02:12 PM Reporting Lab: [facility]ITALRNOR[facility] HOSPITALTRN [facility]PITALUSETS [address] [address] Performing Lab: [facility]ITALRNOR[facility] HOSPITALTRN [facility]ITALUSE[address] [address] [place] CBC AND DIFF (AUTO) BASOPHILS/1 00 LEUKOCYTES IN BLOOD BY AUTOMATED COUNT 0.6 0.1 - 2.0 05/16 Specimen Type: BLOOD No comment entered. Ordering Provider: OSCAR MARQUEZ Report Released Date/Time: Mar 06, 2024 02:12 PM Reporting Lab: [place] [facility] [facility]ITAL[facility]ETS [facility] [address] [facility] [address] Performing Lab: [place] [facility] TRN [facility]ITALUSE[address] [address] [place] CBC AND DIFF (AUTO) NEUTROPHILS [#/VOLUME] IN BLOOD BY AUTOMATED COUNT 4.87 10*3/u L 2.20 - 7.60 05/16 Specimen Type: BLOOD No comment entered. Ordering Provider: OSCAR MARQUEZ Report Released Date/Time: Mar 06, 2024 02:12 PM Reporting Lab: [facility]ITALRNORTH AL[facility] SPECIALTY HOSPITALTRN [address] [address] Performing Lab: [facility]ITALRL TRN [address] [address] [place] CBC AND DIFF (AUTO) LYMPHOCYTES [#/VOLUME] IN BLOOD BY AUTOMATED COUNT 1.49 10*3/u L 1.00 - 3.20 05/16 Specimen Type: BLOOD No comment entered. Ordering Provider: OSCAR MARQUEZ Report Released Date/Time: Mar 06, 2024 02:12 PM Reporting Lab: [facility]RL TR[facility]USE[address] [address] Performing Lab: [place] TRN [facility]ITALUSE[address] [address] [place] CBC AND DIFF (AUTO) EOSINOPHILS [#/VOLUME] IN BLOOD BY AUTOMATED COUNT 0.08 10*3/u L 0.03 - 0.44 05/16 Specimen Type: BLOOD No comment entered. Ordering Provider: OSCAR MARQUEZ Report Released Date/Time: Mar 06, 2024 02:12 PM Reporting Lab: [facility]ITALRL TRN [facility]PITALUSETS [address] [address] Performing Lab: [facility]ITALRNOR[facility] HOSPITALTRN [facility]ITALUSE[address] [address] [place] CBC AND DIFF (AUTO) BASOPHILS [#/VOLUME] IN BLOOD BY AUTOMATED COUNT 0.04 10*3/u L 0.01 - 0.13 05/16 Specimen Type: BLOOD No comment entered. Ordering Provider: OSCAR MARQUEZ Report Released Date/Time: Mar 06, 2024 02:12 PM Reporting Lab: [facility] [address] [address] Performing Lab: [facility]N [address] [address] [place] CBC AND DIFF (AUTO) IMMATURE GRANULOCYTE S/100 LEUKOCYTES IN BLOOD BY AUTOMATED COUNT 0.4 0.0 - 0.7 05/16 Specimen Type: BLOOD No comment entered. Ordering Provider: OSCAR MARQUEZ Report Released Date/Time: Mar 06, 2024 02:12 PM Reporting Lab: [facility] [address] [address] Performing Lab: [facility] [address] [address] [place] CBC AND DIFF (AUTO) IMMATURE GRANULOCYTE S [#/VOLUME] IN BLOOD 0.03 10*3/u L 0.00 - 0.06 05/16 Specimen Type: BLOOD No comment entered. Ordering Provider: OSCAR MARQUEZ Report Released Date/Time: Mar 06, 2024 02:12 PM Reporting Lab: [facility]N [address] [address] Performing Lab: [facility] [address] [address] [place] CBC AND DIFF (AUTO) NRBC % 0.0 0.0 - 0.0 05/16 Specimen Type: BLOOD No comment entered. Ordering Provider: OSCAR MARQUEZ Report Released Date/Time: Mar 06, 2024 02:12 PM Reporting Lab: [facility] [address] [address] Performing Lab: [facility] [address] [address] [place] CBC AND DIFF (AUTO) NRBC, ABS 0.00 10*3/u L 0.00 - 0.00 05/16 Specimen Type: BLOOD No comment entered. Ordering Provider: OSCAR MARQUEZ Report Released Date/Time: Mar 06, 2024 02:12 PM Reporting Lab: [facility]ITALRE[facility] [address] [facility] [address] Performing Lab: [place] CNTRE[facility] [address] [facility] [address] ESDRAS Vital Signs Combined list of inpatient and outpatient Vital Signs from Department of [facility] and Veterans Affairs, ranging from 12 months to all on record, depending upon the facility. Vital Sign Value Date Comments Source SYSTOLIC BLOOD PRESSURE 119 05/16/2024 12:23:24 [place] DIASTOLIC BLOOD PRESSURE 75 05/16/2024 12:23:24 [place] PULSE OXIMETRY 98 05/16/2024 12:23:24 [place] WEIGHT 172.6 05/16/2024 12:23:24 [place] BMI 29 kg/m2 05/16/2024 12:23:24 [place] PULSE 73 05/16/2024 12:23:24 [facility] SYSTOLIC BLOOD PRESSURE 130 03/06/2024 13:59:04 [place] DIASTOLIC BLOOD PRESSURE 85 03/06/2024 13:59:04 [place] PULSE OXIMETRY 97 03/06/2024 13:59:04 [facility] [place] WEIGHT 171 03/06/2024 13:59:04 [place] BMI 29 kg/m2 03/06/2024 13:59:04 [place] TEMPERATURE 97.4 03/06/2024 13:59:04 [facility] [place] PULSE 68 03/06/2024 13:59:04 [place] RESPIRATION 18 03/06/2024 13:59:04 [facility] Encounters Combined list of: 1) [facility]counters [facility] going backup to the last 18 months, not all [place] inpatient encounters are included; 2) Encounters from the [facility] facilities going backup to 280 months. Location Location Details Encounter Type Encounter Number Reason For Visit Attending Provider ADM Date DC Date Status Disposition Source [facility]Hearing Conservat ion FE) OUTPATIENT [id number] Ear plugs ECHO PIKE 07/02 Released w/o Limitations [facility](Hea ring Conserv ation FE) [facility] h(Brigade [facility] FE) OUTPATIENT [id number] right ankle pain ISAIAH GUTIERREZ 07/13 Released with Work/Duty Limitations [facility](Airam twyla Aid Station FE) Theater Facility OUTPATIENT [id number] Theater Provider 03/06 Sick at Home/Quarter s Theater Facilit y Theater Facility OUTPATIENT [id number] 03/14 Released w/o Limitations [facility] OUTPATIENT [id number] 08/11 Released w/o Limitations Theater [facility] Theater Facility OUTPATIENT [id number] 10/25 Released w/o Limitations Theater Facilit y Theater Facility OUTPATIENT [id number] 11/03 Released w/o Limitations [facility] [place] W PT 45 MINUTES 63688-5.63 [id number] Diagnos is: ICD-10- CM F43.12 Post-tr aumatic stress disorde r, chronic ZAIDA DONOVAN 02/01 [place] O/P EST LOW 20-29 MIN 29612-1.63 [id number] Diagnos is: ICD-10- CM F90.9 Attenti on-defi cit hyperac tivity disorde r, unspeci fied type ST KARINE TORRES 02/02 [place] W PT 45 MINUTES 54021-8.63 [id number] Diagnos is: ICD-10- CM F43.12 Post-tr aumatic stress disorde r, chronic ZAIDA DONOVAN 02/08 [place] W PT 45 MINUTES 57273-9.63 [id number] Diagnos is: ICD-10- CM F43.12 Post-tr aumatic stress disorde r, chronic ZAIDA DONOVAN 02/15 [place] W PT 45 MINUTES 68341-5.63 [id number] Diagnos is: ICD-10- CM F43.12 Post-tr aumatic stress disorde r, chronic ZAIDA DONOVAN 02/23 [place] W PT 45 MINUTES 06222-8.63 [id number] Diagnos is: ICD-10- CM F43.12 Post-tr aumatic stress disorde r, chronic ZAIDA DONOVAN 03/01 [place] PS[place] W PT 60 MINUTES 12443-7.63 [id number] 62 Diagnos is: ICD-10- CM F43.12 Post-tr aumatic stress disorde r, chronic ZAIDA DONOVAN 03/08 [place] W PT 60 MINUTES 52082-9.63 [id number] Diagnos is: ICD-10- CM F43.12 Post-tr aumatic stress disorde r, chronic ZAIDA DONOVAN 03[facility]15 [facility] [place] [facility] QNHP OL DIG ASSMT&MGMT 5-10 [id number] [id number] Diagnos is: ICD-10- CM F43.12 Post-tr aumatic stress disorde r, chronic MARTÍNEZ ESPINOZA D 03/15 [place] [facility] [place] [place] [facility] [place] O/P EST LOW 20-29 MIN 85285-3.63 [id number] Diagnos is: ICD-10- CM F90.9 Attenti on-defi cit hyperac tivity disorde r, unspeci fied type ST KARINE TORRES 03/17 [place] PSY[place] W PT 60 MINUTES 49727-2.63 [id number] Diagnos is: ICD-10- CM F43.12 Post-tr aumatic stress disorde r, chronic ZAIDA DONOVAN 03/29 [place] Outpatient Encounter [id number] [id number] 04/05 [place] W PT 60 MINUTES 45713-0.63 [id number] Diagnos is: ICD-10- CM F43.12 Post-tr aumatic stress disorde r, chronic ZAIDA DONOVAN 04/12 [place] PSY[place] W PT 45 MINUTES 06181-6.63 [id number] 57 Diagnos is: ICD-10- CM F43.12 Post-tr aumatic stress disorde r, ZAIDA Hubbard 04/19 [facility] [place] W PT 45 MINUTES 77091-0.63 [id number] Diagnos is: ICD-10- CM F43.12 Post-tr aumatic stress disorde r, ZAIDA Hubbard 04/26 [facility] [place] [place] PSY[place] W PT 45 MINUTES 44774-6.63 [id number] Diagnos is: ICD-10- CM F43.12 Post-tr aumatic stress disorde r, ZAIDA Hubbard 05/10 [facility]ELD [place] PSY[place] W PT 45 MINUTES 47456-0.63 [id number] Diagnos is: ICD-10- CM F43.12 Post-tr aumatic stress disorde r, ZAIDA Hubbard 05/24 [facility] [place] [place] PSY[place] W PT 45 MINUTES 45754-8.63 [id number] 10 Diagnos is: ICD-10- CM F43.12 Post-tr aumatic stress disorde r, ZAIDA Hubbard 06/06 [facility] [place] O/P EST MOD 30 MIN 66776-2.63 [id number] Diagnos is: ICD-10- CM F90.9 Attenti on-defi cit hyperac tivity disorde r, unspeci fied type MELISSA,[facility] [place] G 06/15 [facility] [place] [facility] QNHP OL DIG ASSMT&MGMT 11-20 63061-5.63 [id number] Diagnos is: ICD-10- CM F90.9 Attenti on-defi cit hyperac tivity disorde r, unspeci fied type MARTÍNEZ ESPINOZA D 06/15 [facility] [place] [facility] [place] W PT 45 MINUTES 84247-2.63 [id number] Diagnos is: ICD-10- CM F43.12 Post-tr aumatic stress disorde r, chronic ZAIDA DONOVAN 06/20 [facility] [place] W PT 30 MINUTES 01000-1.63 [id number] 07 Diagnos is: ICD-10- CM F43.12 Post-tr aumatic stress disorde r, chronic ZAIDA DONOVAN 07/04 [facility] [place] [place] PSY[place] W PT 45 MINUTES 18924-9.63 [id number] Diagnos is: ICD-10- CM F43.12 Post-tr aumatic stress disorde r, chronic ZAIDA DONOVAN 08/01 [facility] [place] [facility] EXERCISE CLASS [id number] Diagnos is: ICD-10- CM Y93.42 Activit y, yoga HERIBERTONVESANDRA, DELFINO 08/28 [facility] [place] [facility] [place] PS[place] W PT 45 MINUTES 60897-9.63 [id number] Diagnos is: ICD-10- CM F43.12 Post-tr aumatic stress disorde r, chronic ZAIDA DONOVAN 08/29 [facility] [place] Out[facility] Encounter [id number] [id number] 08/30 [facility] [place] [facility] [place] [facility] EXERCISE CLASS [id number] [id number] Diagnos is: ICD-10- CM Y93.42 Activit y, yoga ZANVETTOR, DELFINO 09/06 [facility] [place] [facility] [facility] [place] EXERCISE CLASS [id number] [id number] Diagnos is: ICD-10- CM Y93.42 Activit y, yoga ZANVETTOR, DELFINO 09/13 [facility] [place] [place] [facility] EXERCISE CLASS [id number] [id number] Diagnos is: ICD-10- CM Y93.42 Activit y, yoga ZANVETTOR, DELFINO 09/25 [facility] [place] [place] W PT 45 MINUTES 39696-4.63 [id number] Diagnos is: ICD-10- CM F43.12 Post-tr aumatic stress disorde r, chronic ZAIDA DONOVAN G 09/26 [place] [facility] [place] [facility] EXERCISE CLASS [id number] [id number] Diagnos is: ICD-10- CM Y93.42 Activit y, yoga ZANVETTOR, DELFINO 10/11 [facility] [place] [facility] [place] [facility] EXERCISE CLASS [id number] [id number] Diagnos is: ICD-10- CM Y93.42 Activit y, yoga ZANVETTOR, DELFINO 10/12 [facility] [place] [facility] [place] O/P EST LOW 20 MIN 01363-9.63 [id number] Diagnos is: ICD-10- CM F90.9 Attenti on-defi cit hyperac tivity disorde r, unspeci fied type ST KARINE TORRES 10/12 [place] [facility] [place] [facility] Outpatient Encounter [id number] [id number] 10/26 [facility] [place] [place] W PT 45 MINUTES 50713-1.63 [id number] Diagnos is: ICD-10- CM F43.12 Post-tr aumatic stress disorde r, chronic ZAIDA DONOVAN G 10/31 [place] W PT 45 MINUTES 57092-0.63 [id number] Diagnos is: ICD-10- CM F43.12 Post-tr aumatic stress disorde r, chronic ZAIDA DONOVAN 11/28 [facility] [place] [facility] Outpatient Encounter 19522-9.63 1.12/25 [facility] [place] [facility] [place] W PT 45 MINUTES [id number] [id number] Diagnos is: ICD-10- CM F43.12 Post-tr aumatic stress disorde r, chronic ZAIDA DONOVAN 01/02 [facility] [place] O/P EST LOW 20 MIN 39778-1.63 1BY. 40 Diagnos is: ICD-10- CM F90.9 Attenti on-defi cit hyperac tivity disorde r, unspeci fied type ST KARINE TORRES 01/10 [facility] [place] [facility] [facility] [facility] Outpatient Encounter 75355-7.63 1.01/10 [facility] [place] [facility] [place] W PT 45 MINUTES 85069-2.63 [id number] Diagnos is: ICD-10- CM F43.12 Post-tr aumatic stress disorde r, chronic EDENJACOBO ZAIDA Natalie 01/30 [facility] [place] [facility] Outpatient Encounter [id number] 1.02/05 [facility] [place] [facility] [place] [facility] Outpatient Encounter 85055-7.63 1.02/05 [facility] [place] [facility] [place] W PT 45 MINUTES 61181-3.63 [id number] Diagnos is: ICD-10- CM F43.12 Post-tr aumatic stress disorde r, chronic EDENJACOBO ZAIDA Natalie 02/27 [facility] [place] [facility] Outpatient Encounter [id number] Diagnos is: ICD-10- CM Z77.29 Contact with and exposur e to other hazardo us substan Tirso Stanford A 03/01 [facility] [place] [facility] [place] O/P EST MOD 30 MIN 02015-2.63 [id number] Diagnos is: ICD-10- CM J45.909 Unspeci fied asthma, uncompl icated DAGO MARQUEZ N 03/06 [facility] [place] W PT 45 MINUTES 65963-5.63 [id number] 61 Diagnos is: ICD-10- CM F43.12 Post-tr aumatic stress disorde r, chronic ZAIDA DONOVAN G 04/03 [facility] [place] O/P EST LOW 20 MIN 35009-5.63 [id number] Diagnos is: ICD-10- CM F90.9 Attenti on-defi cit hyperac tivity disorde r, unspeci fied type ST KARINE TORRES G 04/11 [facility] [place] PSY[place] W PT 45 MINUTES 41408-0.63 [id number].[id number] 35 Diagnos is: ICD-10- CM F43.12 Post-tr aumatic stress disorde r, chronic ZAIDA DONOVAN G 05/08 [facility] [place] OFF/OP EST JULY X REQ PHY/QHP 73403-6.63 [id number] 50 Diagnos is: ICD-10- CM Z82.49 Family hx of ischem heart dis and oth dis of the circ sys Viridiana DOUGLAS 05/16 [facility] IELD [facility] ELECTROCAR DIOGRAM REPORT [id number] [id number] Diagnos is: ICD-10- CM Z13.6 Encount er for screeni ng for cardiov ascular disorde rs Allie MART 05/16 [place] [facility] [place] O/P EST MOD 30 MIN 04549-9.63 [id number] Diagnos is: ICD-10- CM J45.909 Unspeci fied asthma, uncompl icated Viridiana DOUGLAS 05/16 [facility] [place] PSY[place] W PT 45 MINUTES 62034-1.63 [id number] Diagnos is: ICD-10- CM F43.12 Post-tr aumatic stress disorde r, ZAIDA Hubbard 06/05 [facility] [place] [facility] En[facility] [id number] [id number] [facility] [place] [facility] [place] Encounter [id number] [id number] [facility] [place] [facility] [place] Out[facility] Encounter [id number] [id number]/19 [facility] [place] [facility] [place] Out[facility] Encounter [id number] [id number] 06/26 [facility] [place] [facility] [place] W PT 45 MINUTES 22157-7.63 [id number] 45 Diagnos is: ICD-10- CM F43.12 Post-tr aumatic stress disorde r, ZAIDA Hubbard 07/03 [facility] IELD Procedures Combined list of: 1) Procedures from Department of Veterans Affairs facilities going back up to thelast 18 months, not all VA non-surgical procedures are included; 2) All procedures from the Department of Defense facilities. Procedure Procedure Type Code Date Perfomer Comments Sourc e NONINVASIVE EAR OR PULSE OXIMETRY FOR OXYGEN SATURATION; SINGLE DETERMINATION 03/03/2004 [facility] EAR PROTECTOR ATTENUATION MEASUREMENTS 07/02/2004 [facility] Social History Combined list of available smoking, tobacco, and other social history from Department of Defense and Veterans Affairs facilities. Social History Type Response Date Comment Source Tobacco smoking status [facility]-TOBACCO NEVER USED OTHER TYPE 03/06/2024 [place] [facility]24 [place] History of tobacco use [place]-TO[place] FORMER USER 02/08/2023 [place] History of tobacco use [place]-TOBACCO QUIT 15 YRS OR MORE 06/18/2020 [place] History of tobacco use [place]-TOBACCO NEVER USED 08/01/2018 [place] History of tobacco use QUIT TOBACCO USE > 7 YEARS AGO 07/06/2017 [place] History of tobacco use QUIT TOBACCO USE 1-7 YEARS AGO 06/09/2016 [place] History of tobacco use QUIT TOBACCO USE > 7 YEARS AGO 04/01/2015 [place] History of tobacco use QUIT TOBACCO USE 1-7 YEARS AGO 08/05/2013 [place] History of tobacco use QUIT TOBACCO USE 1-7 YEARS AGO 01/24/2013 [place] History of tobacco use QUIT TOBACCO USE 1-7 YEARS AGO 02/23/2012 pt quite smoking cigaretts in 2007. [place] History of tobacco use CURRENT SMOKER 03/11/2011 Patient smokes one pack of cigerets every three months. [place] History of tobacco use QUIT TOBACCO USE 1-7 YEARS AGO 03/30/2009 [place] History of tobacco use QUIT TOBACCO USE IN PAST YEAR 03/11/2009 [place] History of tobacco use QUIT TOBACCO USE 1-7 YEARS AGO 02/07/2008 [place] History of tobacco use QUIT TOBACCO USE 1-7 YEARS AGO 06/08/2007 [facility] History of tobacco use QUIT TOBACCO USE IN PAST YEAR 03/13/2006 smoked 2-3 cigarettes a day but quit 2 months ago [facility] This section is an empty social history section. [facility] Plan of Care List of future care activities from Department of Veterans Affairs facilities. Additional future care activities may be listed in the Assessment and Plan section. Date/Time Care Activity Care Activity Detail Facili ty 07/31/2024 AMBULATORY - PSYCHIATRY AMBULATORY - PSYC HIATRY [facility]
--- OUTSIDE RECORDS SUMMARY | 2024-07-24 08:03 | XMS_ITS | Encounter Summary ---
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 Aug 25, [id number] Jessica LEIGH ENJAMIN PATIENT [facility] MEDICAID ME DEPT HUMAN [facility] Aug 25, [id number] Jessica LEIGH ENJAMIN PATIENT [facility] MEDICAID [facility] Dec 19, 2018 [id number] Jessica LEIGH ENJAMIN PATIENT MEDICARE (WNR) MEDICARE (M) PART A Aug 25, 2010 PART A [id number] Jessica LEIGH PATIENT MEDICARE (WNR) MEDICARE (M) PART B Aug 25, 2010 PART B [id number] [phone] Jessica LEIGHMIN PATIENT [facility] PHUONG CARTER DT Mar 27, 2022 [id number] Jessica LEIGHMIN PATIENT [facility] AIDA BOWENS H Mar 27, 2021 [id number] [phone] Jessica LEIGH ENGMMIN PATIENT [facility] POINT OF SERVICE ALISA Dumont Mar 27, 2021 [id number] [phone] Jessica LEIGH PATIENT Selected Encounter This section includes the information on record at [place] for the Encounter. Date/Time Encounter Type Encounter Description Reason Provider Source Sep 26, 2023 11:00 AM EXERCISE CLASS HEALTH/WELL[facility] ICD-10-CM Y93.42 Activity, SALEEM Winkler IHReddy Encounter Template Text not used by [place] Assessments - Encounter Diagnoses This section includes the primary and secondary diagnoses documented for the Encounter. Date/Time Primary/Secondary Diagnosis Diagnosis Name Provider Source Sep 26, 2023 03:31 PM PRIMARY Activity, ISAEL [facility]inkler [facility] [place] [facility] Plan of Treatment: Future Appointments (+ 6 months) and Future Tests (+/- 45 days) The Plan of Treatment section includes future care activities for the patient from all [place] treatmentfacilities. This section includes future appointments and future orders which are active, pending or scheduled. Future Appointments This section includes appointments that were scheduled to occur 6 months from the date of the Encounter, up to a maximum of 20 appointments. The data comes from all [place] treatment facilities. Appointment Date/Time Appointment Type Appointme nt Facility Name Sep 27, 2023 08:00 AM AMBULATORY - PSYCHIATRY [facility] [facility] Oct 12, 2023 01:00 PM AMBULATORY - MEDICINE [facility] [place] [facility] Oct 13, 2023 10:00 AM AMBULATORY - MEDICINE [facility] [place] [facility] Oct 13, 2023 11:30 AM AMBULATORY - PSYCHIATRY [facility] [place] [facility] Oct 27, 2023 04:00 PM AMBULATORY - MEDICINE [facility] [place] [facility] Nov 01, 2023 08:00 AM [facility]UL[facility]ORY [facility] [place] [facility] Nov 29, 2023 08:00 AM AMBULATORY - PSYCHIATRY [facility] [place] [facility] Jan 03, 2024 08:00 AM AMBULATORY - PSYCHIATRY [facility] [place] [facility] Jan 11, 2024 11:00 AM [facility] [place] [facility] Jan 31, 2024 09:00 AM AMBULATORY - PSYCHIATRY [facility] [place] [facility] Feb 28, 2024 09:00 AM AMBULATORY - PSYCHIATRY [facility] [facility] Mar 01, 2024 02:30 PM AMBULATORY - MEDICINE [facility] Mar 06, 2024 02:00 PM AMBULATORY - MEDICINE [facility] Social History: Smoking Status (Most current) and Tobacco Use (All prior to encounter date) This section includes the most current, and the historical, smoking and tobacco- related health factors from the [place] facility where the Encounter took place. Current Smoking Status This section includes the most current smoking, or tobacco-related health factor, from the [place] facility where the Encounter took place. Date/Time Current Smoking Status Comment [facility] Jun 08, 2007 09:39 AM QUIT TOBACCO USE 1 -7 YEARS AGO [facility] Tobacco Use History This section includes a history of the smoking, or tobacco-related health factors, that were collected on or before the date of the Encounter. The data comes from the [place] facility where the Encounter took place. Date/Time Smoking Status/Tobac co Use Comment Facility Mar 13, 2006 10:06 AM QUIT TOBACCO USE IN PAST YEAR smoked 2-3 cigarettes a day but quit 2 months ago [facility] Encounter Notes: All associated encounter notes This section contains the clinical notes associated to the Encounter. Date/Time Encounter Note(s) Provider Source Sep 26, 2023 11:00 AM RECREATIONAL THERA PY NOTE: LOCAL TITLE: [facility] WELLBEING STANDARD TITLE: RECREATIONAL THERAPY NOTE DATE OF NOTE: SEP 26, 2023@11:00 ENTRY DATE: SEP 26, 2023@15:28:06 AUTHOR: DELFINO DUENAS COSIGNER: URGENCY: STATUS: COMPLETED [...] tree, triangle pose, wide leg forward bend, [place] 2, Extended Side Angle Pose, Intense Side Stretch, [place] 1, plank, cobra, locust, downward facing dog, wisdom pose, contralateral limb raises, head to knee pose, bridge, reclined twist, and knees to chest; Systematic Relaxation; and Gratitude. Modifications were geared toward the [place]'s individual needs and preferences. was one of twelve participants in Group Yoga. He practiced all the postures offered, using yoga blocks and a yoga strap for support as needed. He was attentive to his breath throughout the session. [place] will return to class as his schedule allows. /atif/ GARRICK [id number] Turbine Measurements Engineer Signed: 09/26/2023 15:35 DELFINO DUENAS [facility]
--- OUTSIDE RECORDS SUMMARY | 2024-07-24 08:03 | XMS_ITS | Clinical Summary ---
Author Organization [facility] 299 [facility] Address [address] [place] [address] Phone Care Team Providers Care Banquet Lead Name Role Phone Derrick Olea MD Primary Care Provider [phone] Allergies Active Allergy Reactions Criticality Noted Date Comments Hydrocodone-Acetaminophen Itching Medium 08/22/2006 Shellfish Containing Products Hives,Rash Low 2022 Medications lisdexamfetamine (Vyvanse) 20 mg capsule Take 1 capsule (20 mg total) by mouth 1 (one) time each day. 4 Active esomeprazole (NexIUM) [address] capsule TAKE 1 CAPSULE BY MOUTH EVERY DAY IN THE MORNING BEFORE BREAKFAST 4 Active ergocalciferol (VITAMIN D-2) 1,250 mcg (50,000 unit) capsule Take 1 capsule (50,000 Units total) by mouth. 3 Active EPINEPHrine (EpiPen 2-Braden) 0.3 mg/0.3 mL injection Inject 0.3 mL (0.3 mg total) into the thigh. 4 Active multivit-min/joseph ashli fumarate (MULTI VITAMIN ORAL) Take by mouth. Activ e hydrocortisone (ANUSOL-HC) 2.5 % rectal creamIndications :External hemorrhoids Insert into the rectum 2 (two) times a day if needed for hemorrhoids (for rectal discomfort) for up to 14 days. Apply externally to rectum as needed for rectal discomfort 30 g 1 5 Active benzonatate (TESSALON) 100 mg capsule Take 1 capsule (100 mg total) by mouth 3 (three) times a day if needed for cough. Do not crush or chew. 42 capsule 5 08/18/19 25 Active predniSONE (DELTASONE) 20 mg tablet Take 60 mg PO daily for 3 days, then take 40 mg PO daily for 3 days, then 20 mg PO daily for 3 days, then stop 18 tablet 5 Active Active Problems Problem Noted Date Diagnosed Date Renal function test abnormal 03/04/2024 Overview (03/04/2024): August 03, 2020 Entered By: TRISH CARROLL Comment: No Show on late June 2020 Low back pain 03/04/2024 Gastroesophageal reflux disease 03/04/2024 Exposure to potentially hazardous substance 11/2023 Overview (03/04/2024): Mar 01, 2024 Entered By: GILMAR CRAMER Comment: [place] [employer] Exam - 03/01/2024 Mar 01, 2024 Entered By: GILMAR CRAMER Comment: Contact with and Suspected Exposure to Environmental Pollution (burn pits) Mar 01, 2024 Entered By: GILMAR CRAMER Comment: Other Contact with and (Suspected) Exposures Hazardous Substances (oil well fire smoke, sand, dust, fine PM, aircraft exhaust, generator exhaust, solvents, oil, TYLOR-8 fuel) Mar 01, 2024 Entered By: GILMAR CRAMER Comment: Contact with and Suspected Exposure to Noise (helicopters) Mar 01, 2024 Entered By: GILMAR CRAMER Comment: Exposure to Disaster, War, or Other Hostilities Epigastric pain 03/04/2024 Contact with and (suspected) exposure to other hazardous substances 03/04/2024 Chronic post-traumatic stress disorder (PTSD) Attention-deficit hyperactivity disorder, unspec ified type 03/04/2024 Activity, yoga 03/04/2024 Post traumatic stress disorder (PTSD) 03/04/2024 Chronic pain of both knees 09/08/2023 Hives 09/07/2023 Groin pain, chronic, left 03/28/2023 Attention deficit disorder 12/14/2022 Overview (03/04/2024): beh modification Paraesophageal hiatal hernia 07/14/2021 Overview (03/04/2024): Last Assessment & Plan: 35-year-old male with a long time reflux and a moderate sized hiatal hernia noted on EGD with some esophagitis also noted likely secondary to reflux. I had a long discussion with him about the findings on his EGD as well as hiatal/paraesophageal hernias in general which he seemed understand. Her to get a better anatomic idea of the status of his hernia and contents of the hernia we will get a CT scan of the chest. We will also plan on doing a barium esophagram to assess esophageal motility or any additional reflux or obstructive pathologies. Once we have that information can better decide on how to proceed depending on the size/contents of the hernia and the barium esophagram. I do think he at least has medically refractory GERD and we will plan on manometry and pH testing if the hernia is small on CT imaging/barium esophagram. If the hernia is not small and has a paraesophageal component to it we will plan on likely operative repair of the hernia with a fundoplication. He understands all this and all questions were answered. Dyslipidemia 09/21/2018 Asthma 01/27/2006 Encounters Date Type Department Care Team Description 07/18/2024 9:33 AM EDT - 07/18/2024 11:59 PM EDT Hospital Encounter [address] [phone] Upper respiratory tract infection, unspecified type; Frontal sinus pain; Pain of maxillary sinus Discharge Disposition: Home or Self Care 07/18/2024 9:32 AM EDT - 07/18/2024 11:59 PM EDT Hospital Encounter [address] [phone] Upper respiratory tract infection, unspecified type; Acute cough Discharge Disposition: Home or Self Care 07/18/2024 9:00 AM EDT Office Visit Adult Medicine [address] [phone] Derrick Olea MD Upper respiratory tract infection, unspecified type (Primary Dx); Acute non-recurrent sinusitis, unspecified location; Frontal sinus pain; Pain of maxillary sinus; Mild intermittent asthma without complication; Acute cough 07/17/2024 Telephone Adult Medicine [facility] [address] [place] [address] Derrick Olea MD Nasal Congestion 07/15/2024 Telephone Gastroenterology - [address] [phone] Edgar Richardson MD 06/17/2024 8:40 AM EDT Office Visit Gastroenterology - [address] [phone] Dayami Hendricks PA External hemorrhoids (Primary Dx); Colon cancer screening 06/17/2024 Telephone Gastroenterology - [address] [place] [phone] Edgar Richardson MD 05/06/2024 Telephone Gastroenterology - [address] [place] [phone] Arnulfo Norris MD from Last 3 Months Immunizations Name Administration Dates Next Due DTP 1984 DTaP, Unspecified 03/27/2007 LLaU-XZI-CWL (Pentacel) 2mo to less than 5yo 02/05/1986 Diptheria & Tetanus, 6wks to less than 7yo 03/21/1986,02/25/1985,1984 Hepatitis B Pediatric (Enger ix B; Recombivax HB) to less than 20 yo 04/14/1997,01/06/1997,11/18/1996 Influenza Quadrivalent, 0.5m l, preservative free (Fluarix; FluLaval; Fluzone) ages 6mo and older (Afluria) 3yo and older 12/02/2021,12/10/2020,06/18/2020 Influenza trivalent, with pr eservative (Fluzone; Afluria) 6mo and older 03/27/2017 Influenza, Unspecified 01/14/2016,2015,01/24/2013,12/20,03/11/2011,01/01/2009 MMR, measles mumps and rubel la Live (Priorix; M-M-R II) 12mo and older 11/14/1996,02/05/1986 OPV 03/21/1986, 5,1984,10/19 PPD Test 11/04/2023, 4,11/06/2022,12/02,09/25/2021,08/27/2020,11/05/2012 Pneumococcal polysaccharide 23 valent (Pneumovax 23) 2yo and older 06/18/2020 Td Tetanus diptheria (Tdvax) 7yo and older 07/26/2004,10/15/2002,11/14/1996 Tdap Tetanus diptheria acell ular pertussis (Boostrix; Adacel) 7yo and older 11/21/2022,11/06/2022,11/05/2012 Surgical History Surgery Date Site/Laterality Comments WISDOM TOOTH EXTRACTION PROCEDURE: HISTORICAL WISDOM TEETH EXTRACTION COLONOSCOPY 07/12/2000 PROCEDURE: HISTORICAL COLONOSCOPY; COMMENT: Dr Paz: normal to terminal ileum. Biopsies normal. ESOPHAGOGASTRODUODENOSCOPY 07/12/2000 PROCEDURE: [place] EGD TRANSORAL BIOPSY SINGLE/MULTIPLE; COMMENT: Dr Paz: esophagitis and duodenitis. Biopsies normal. Negative for H. pylori. ESOPHAGOGASTRODUODENOSCOPY 09/22/11 PROCEDURE: [place] ESOPHAGOGASTRODUODENOSCOPY TRANSORAL DIAGNOSTIC; COMMENT: small hiatus hernia Medical History Medical History Date Comments Attention deficit disorder w ithout mention of hyperactivity DX:Attention deficit disorde r without mention of hyperactivity; COMMENT: beh modification Allergic rhinitis, cause unspecified DX:Allergic rhinitis, cause unspecified Unspecified asthma(493.90) 01/27/2006 DX:Un specified asthma(493.90) Esophageal reflux DX:Esophageal reflux Epigastric pain DX:Epigastric pa in Hyperlipidemia DX:Hyperlipidemi a PTSD (post-traumatic stress disorder) DX:PTSD (post-traumatic stress disorder) Anxiety and depression DX:Anxiet y and depression Colon polyp Family History Medical History Relation Name Comments Hypertension Father Colon cancer Maternal Grandfather Lung cancer Maternal Grandfather D Breast cancer Mother Crohn's disease Mother Other: SLE Mother ulcers Colon cancer Mother's Brother Lung cancer Paternal Grandfather D Colon polyps Sister 1 Colon cancer Uncle 1 maternal great uncle Pancreatic cancer Uncle 2 Pancreatic cancer Uncle 3 Relation Name Status Comments Brother 1 Alive Brother 2 Alive Brother 3 Alive Father Alive HTN Maternal Grandfather LUNG CA Maternal Grandmother Alive Mother Alive SLE Mother's Brother Other Maternal Great Uncle Prostat e cancer Paternal Grandfather LUNG CA Paternal Grandmother Alive Sister 1 Alive Sister 2 Alive Uncle 1 Uncle 2 Uncle 3 Social History Tobacco Use Types Packs/Day Years [...] on file Sexual Orientation Not on file Obstetrics History Last Filed Vital Signs Vital Sign Reading Time Taken Comments Blood Pressure 122/66 07/18/2024 9:06 AM EDT Pulse 97 07/18/2024 9:06 AM EDT Temperature 36.5 ??C (97.7 ??F) 07/18/2024 9:06 AM ED T Respiratory Rate - - Oxygen Saturation 97% 06/28/2021 8:46 AM EDT RA Inhaled Oxygen Concentration - - Weight 79.8 kg (176 lb) 07/18/2024 9:06 AM EDT Height 165.1 cm (5' 5 ) 07/18/2024 9:06 AM EDT Body Mass Index 29.29 07/18/2024 9:06 AM EDT Plan of Treatment Upcoming Encounters Date Type Department Care Team (Late st Contact Info) Description 09/09/2024 2:00 PM EDT Appointment [facility] [address] [place] [phone] Yinka Velarde MD [address] [facility] [address] [place] [phone] Health Maintenance Due Date Last Done Comments Pneumococcal Vaccine: Pediatrics (0 to 5 Years) and At-Risk Patients (6 to 64 Years) (2 of 2 - PCV) 06/18/2021 06/18/2020 Depression Screening 03/05/2022 HIV Screening 03/05/2022 Hepatitis C Screening 03/05/2022 Social Influencers of Health Screening 03/05/2022 COVID-19 Vaccine (6 - Pfizer risk season) 2024 12/18/2023, 06/06/2023, 04/17/2021, Additional history exists Cholesterol Screening (Lipid Panel) 12/15/2027 12/14/2022 DTaP,Tdap,and Td Vaccines (13 - Td or Tdap) 06/05/2033 06/06/2023, 11/21/2022, 11/06/2022, Additional history exists HIB Vaccines Completed 02/05/1986, 02/05/1986 IPV Vaccines Completed 03/21/1986, 01/25, 02/25/1985, Additional history exists MMR Vaccines Completed 11/14/1996, 02/05/1986 Hepatitis B Vaccines Completed 04/14/1997, 01/06/1997, 11/18/1996 Influenza Vaccine Completed 12/26/2023, , 11/29/2022, Additional history exists HPV Vaccines Aged Out No longer eligi ble based on patient's age to complete this topic Hepatitis A Vaccines Aged Out No long er eligible based on patient's age to complete this topic Meningococcal ACWY Vaccine Aged Out N o longer eligible based on patient's age to complete this topic Meningococcal B Vaccine Aged Out No l onger eligible based on patient's age to complete this topic RSV Immunization Patients Under 20 months Aged Out No longer eligible based on patient's age to complete this topic Varicella Vaccines Aged Out No longer eligible based on patient's age to complete this topic Procedures Procedure Name Priority Date/Time Associated Diagnosis Comments XR PARANASAL SINUSES 3+ VIEWS Routine 07/18/2024 9:41 AM EDT Upper respiratory tract infection, unspecified type Frontal sinus pain Pain of maxillary sinus XR CHEST 2 VIEWS Routine 07/18/2024 9:41 AM EDT Upper respiratory tract infection, unspecified type Acute cough from Last 3 Months Results * XR Paranasal Sinuses 3+ Views (07/18/2024 9:41 AM EDT) Anatomical Region Laterality Modality Head and Neck Radiographic Yohana ging 07/18/2024 9:56 AM EDT Impressions 07/18/2024 9:57 AM EDT Normal study. -------- FINAL REPORT -------- Dictated By: Oriana Hernandez Dictated Date: 07/18/2024 09:56 ET Assigned Physician: Oriana Hernandez Reviewed and Electronically Signed By: Oriana Hernandez Signed Date: 07/18/2024 09:57 ET Workstation ID: [id number] Transcribed By: Self Edit Transcribed Date: 07/18/2024 [...] Signed Date: 07/18/2024 09:57 ET Workstation ID: [id number] Transcribed By: Self Edit Transcribed Date: 07/18/2024 09:56 ET us Derrick Olea MD IMG XR PROCEDURES Final Res ult * XR Chest 2 Views (07/18/2024 9:41 AM EDT) Anatomical Region Laterality Modality Body Radiographic Yohana ging 07/18/2024 9:55 AM EDT Impressions 07/18/2024 9:56 AM EDT No acute pulmonary pathology. -------- FINAL REPORT -------- Dictated By: Oriana Hernandez Dictated Date: 07/18/2024 09:55 ET Assigned Physician: Oriana Hernandez Reviewed and Electronically Signed By: Oriana Hernandez Signed Date: 07/18/2024 09:56 ET Workstation ID: [id number] Transcribed By: Self Edit Transcribed Date: 07/18/2024 09:55 ET Narrative 07/18/2024 9:56 AM EDT CHEST, TWO VIEWS HISTORY: ?? Cough for 3 weeks. TECHNIQUE: Frontal and lateral views of the chest. PRIOR: None. FINDINGS: The lungs are clear. No pleural effusion is seen. No pneumothorax is seen. The cardiac diameter is within normal limits. No acute or aggressive appearing bony abnormalities are seen. ?? Procedure Note Oriana Hernandez MD - 07/18/2024 CHEST, TWO VIEWS HISTORY: Cough for 3 weeks. TECHNIQUE: Frontal and lateral views of the chest. PRIOR: None. FINDINGS: The lungs are clear. No pleural effusion is seen. No pneumothorax is seen. The cardiac diameter is within normal limits. No acute or aggressive appearing bony abnormalities are seen. IMPRESSION: No acute pulmonary pathology. -------- FINAL REPORT -------- Dictated By: Oriana Hernandez Dictated Date: 07/18/2024 09:55 ET Assigned Physician: Oriana Hernandez Reviewed and Electronically Signed By: Oriana Hernandez Signed Date: 07/18/2024 09:56 ET Workstation ID: [id number] Transcribed By: Self Edit Transcribed Date: 07/18/2024 09:55 ET us Derrick Olea MD IMG XR PROCEDURES Final Res ult from Last 3 Mon[address] [facility] [place] [id number] [facility] Care Teams Banquet Lead Relationship Specialty Start Date End Date Derrick Olea MD [address] [place] [address] PCP - General 06/09/22
--- OUTSIDE RECORDS SUMMARY | 2024-07-24 08:03 | XMS_ITS | Encounter Summary ---
Author Name [facility] [facility] [place] Address [address] [place] [address] Care Team Providers Care Vocal Music Teacher Name Role Phone OSCAR MARQUEZ Primary Care [...] Patient's Relationship to Policy Guillory [employer] ([id number]) PRESCRIPT ION RX Mar 27, 2021 [facility] [id number] Jessica LEIGH ENJAMIN PATIENT [employer] ([id number]) PRESCRIPT ION Nov 08, 2016 TA [id number] Jessica LEIGH ENJAMIN PATIENT [facility] MEDICAID MEDICAID [place] DEPT HUMAN [facility] Aug 25, [id number] Jessica LEIGH ENJAMIN PATIENT [facility] MEDICAID [place] DEPT HUMAN [facility] Aug 25, [id number] Jessica LEIGH ENJAMIN PATIENT [facility] Dec 19, 2018 [id number] Jessica LEIGH PATIENT MEDICARE (WNR) MEDICARE (M) PART A Aug 25, 2010 PART A [id number] Jessica LEIGH PATIENT MEDICARE (WNR) MEDICARE (M) PART B Aug 25, 2010 PART B [id number] Jessica LEIGH PATIENT [facility] PHUONG NCALANAO DT Mar 27, 2022 [id number] Jessica LEIGH PATIENT [facility] AIDA BOWENS H Mar 27, 2021 [id number] Jessica LEIGH PATIENT [facility] POINT OF SERVICE ALISA ESPINOSA T Mar 27, 2021 [id number] [phone] Jessica LEIGH PATIENT Selected Encounter This section includes the information on record at [place] for the Encounter. Date/Time Encounter Type Encounter Description Reason Pro vider Source Aug 31, 2023 01:46 PM Outpatient Encounter ADMIN PAT ACTIVTIES (MASNONCT) IHE Encounter Template Text not used by [place] Plan of Treatment: Future Appointments (+ 6 months) and Future Tests (+/- 45 days) The Plan of Treatment section includes future care activities for the patient from all [place] treatmentfacilities. This section includes future appointments and future orders which are active, pending or scheduled. Future Appointments This section includes appointments that were scheduled to occur 6 months from the date of the Encounter, up to a maximum of 20 appointments. The data comes from all [place] treatment facilities. Appointment Date/Time Appointment Type Appointme nt Facility Name Sep 07, 2023 01:00 PM [place] [facility] [place] [facility] Sep 14, 2023 01:00 PM [place] [facility] [place] [facility] Sep 26, 2023 11:00 AM [place] [facility] [place] [facility] Sep 27, 2023 08:00 AM AM[place]ATORY [place] [facility] [place] [facility] Oct 12, 2023 01:00 PM [place] [facility] [place] [facility] Oct 13, 2023 10:00 AM [place] [facility] [place] [facility] Oct 13, 2023 11:30 AM [place] [place] [facility] [place] [facility] Oct 27, 2023 04:00 PM [place]AT[place] [facility] [place] [facility] Nov 01, 2023 08:00 AM AM[facility]ULATORY - [facility]ATRY [place] [facility] [place] [facility] Nov 29, 2023 08:00 AM AM[facility]ULATORY - PS[facility]CHIATRY [facility] [place] [facility] Jan 03, 2024 08:00 AM [facility] [facility] [place] [facility] Jan 11, 2024 11:00 AM [place] [facility] [place] [facility] Jan 31, 2024 09:00 AM AM[place] [place] [facility] [place] [facility] Feb 28, 2024 09:00 AM AM[facility] [place] [facility] [place] [facility] Mar 01, 2024 02:30 PM AMBULATORY - MEDICINE [facility] Social History: Smoking Status (Most current) and Tobacco Use (All prior to encounter date) This section includes the most current, and the historical, smoking and tobacco- related health factors from the [place] facility where the Encounter took place. Current Smoking Status This section includes the most current smoking, or tobacco-related health factor, from the [place] facility where the Encounter took place. Date/Time Current Smoking Status Comment [facility] Jun 08, 2007 09:39 AM QUIT TOBACCO USE 1 -7 YEARS AGO [facility] Tobacco Use History This section includes a history of the smoking, or tobacco-related health factors, that were collected on or before the date of the Encounter. The data comes from the [place] facility where the Encounter took place. Date/Time Smoking Status/Tobac co Use Comment Facility Mar 13, 2006 10:06 AM QUIT TOBACCO USE IN PAST YEAR smoked 2-3 cigarettes a day but quit 2 months ago [facility] Encounter Notes: All associated encounter notes This section contains the clinical notes associated to the Encounter. Date/Time Encounter Note(s) Provider Source Aug 31, 2023 03:09 PM ADDENDUM: LOCAL TITLE: Addendum STANDARD TITLE: ADDENDUM DATE OF NOTE: AUG 31, 2023@15:09:27 ENTRY DATE: AUG 31, 2023@15:09:29 AUTHOR: KIKO TORRES EXP COSIGNER: URGENCY: STATUS: COMPLETED has not been seen since May 2023 and does not have a follow up visit scheduled. I cannot refill until a follow-up visit is at least scheduled, and then only to cover until that time. /atif/ KIKO TORRES M.D. 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 Please review and renew if appropriate. *This note was generated by [facility] Pharmacy Customer Care. If you have any questions or need assistance, do not contact this author. Please refer all questions to your local, on-site pharmacy departments. /atif/ ROBERT DAVIS Sc[employer], [place]/Pharmacy Customer Care Signed: 08/31/2023 13:46 Receipt Acknowledged By: 08/31/2023 15:08 /atif/ KIKO MARTIN M.D. [place] [facility] Aug 31, 2023 01:46 PM PHARMACY NOTE: LOCAL TITLE: V1 PHARMACY CUSTOMER CARE MEDICATION RENEWAL STANDARD TITLE: PHARMACY NOTE DATE OF NOTE: AUG 31, 2023@13:46 ENTRY DATE: AUG 31, 2023@13:46:09 AUTHOR: ROBERT DAVIS EXP COSIGNER: URGENCY: STATUS: COMPLETED V1 PHARMACY CUSTOMER CARE MEDICATION RENEWAL Has ADDENDA Date: Aug Division: [place] [facility] referred by Pharmacy Call Center for medication renewal: Controlled substance Medications requested: [id number] LISDEXAMFETAMINE DIMESYLATE 20MG CAP Defer to specialty clinic To be mailed . Please review and renew if appropriate. *This note was generated by [facility] Pharmacy Customer Care. If you have any questions or need assistance, do not contact this author. Please refer all questions to your local, on-site pharmacy departments. /atif/ ROBERT DAVIS [employer], [place]/Pharmacy Customer Care Signed: 08/31/2023 13:46 Receipt Acknowledged By: 08/31/2023 15:08 /atif/ KIKO TORRES M.D. 08/31/2023 ADDENDUM STATUS: COMPLETED [place] has not been seen since May 2023 and does not have a follow up visit scheduled. I cannot refill until a follow-up visit is at least scheduled, and then only to cover until that time. /atif/ KIKO TORRES M.D. Signed: 08/31/2023 15:10 Receipt Acknowledged By: * AWAITING SIGNATURE * LEANA TREJO CEAIRA K [place] [facility]
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
--- OUTSIDE RECORDS SUMMARY | 2024-07-24 08:03 | XMS_ITS | Encounter Summary ---
Author Organization [facility] Address [address] [place] [address] Encounters * New patient, Video / office, 15-29 minutes with Radha Diaz at [facility] on y/o male patient presents for management of chronic external/internal hemorrhoids, and chronic knee pain. Referrals placed. We evaluated Avni Marcum for Hemorrhoids during this period from 2024-04-29 to 2024-05-06.A log history of our dialog is attached below. PHR was confirmed per below. 1. Hemorrhoids NOS (K64.9) CHRONIC CARE PLAN SOAP NOTE Video visit date: 04/29/24 Start time: 9:30am End time: 9:42am SUBJECTIVE: 38 y/o male patient presenting for management of Internal and External hemorrhoids. Diagnosed whilein in 2005. Sedentary lifestyle, sitting longer periods of time for work, over past 6-8 months persistent exacerbation of hemorrhoids, has been using Preparation-H, Tucks wipes, Sitz baths, with short term minimal relief. Extensive family hx of Crohn's, colon malignancy Colonoscopy 3 years ago showing benign colon polyps, internal and external hemorrhoids, insurance changed unable to follow up with previous GI Requesting referral for new GI OBJECTIVE: EXAM: Patient was well appearing, in no distress, with a normal mood and affect, and gave clear clinical history. Speech was clear, without aphasia or dysarthria. Respiratory effort and neurologic status were grossly normal. I have reviewed and updated the problem and medication list and assessed the patient's pertinent positives and negatives as outlined in the intake titled Hemorrhoids on 04/23/24 ASSESSMENT & PLAN: Chronic Hemorrhoids, Internal and External Plan: 1. Continue conservative methods to decrease hemorrhoid flair ups 2. Referral placed Follow-up interval and reason/type: PRN 2. Pain in right knee (M25.561) 3. Pain in left knee (M25.562) CHRONIC CARE PLAN SOAP NOTE VV done (hemorrhoid case) -04/29/24 SUBJECTIVE: 38 y/o male patient presenting for management of Chronic B/L knee pain/OA due to previous activity/deployment in [id number]. States has long wait to see specialists at [place], requesting referralfor Orthopedics. OBJECTIVE: EXAM: Patient was well appearing, in no distress, with a normal mood and affect, and gave clear clinical history. Speech was clear, without aphasia or dysarthria. Respiratory effort and neurologic status were grossly normal. - knees - no erythema, no effusion, decreased ROM due to pain ASSESSMENT & PLAN: Chronic B/L Knee pain Plan: 1. Referral for Orthopedics placed Follow-up interval and reason/type: 2 weeks Written by Radha Diaz on 2024-04-29
--- OUTSIDE RECORDS SUMMARY | 2024-07-24 08:03 | XMS_ITS | Encounter Summary ---
Author Name [facility] Organization [facility] [place] [facility] [place] Address [address] [place] [address] Care Team Providers Care Precinct Police Sergeant Name Role Phone OSCAR MARQUEZ Primary Care [...] Patient's Relationship to Policy Guillory [employer] ([id number]) PRESCRIPT ION RX Mar 27, 2021 [facility] [id number] [phone] Jessica LEIGH ENJAMIN PATIENT [employer] ([id number]) PRESCRIPT ION Nov 08, 2016 TA [id number] Jessica LEIGH ENJAMIN PATIENT [facility] MEDICAID [facility]ICAID [facility] Aug 25, [id number] Jessica LEIGH ENJAMIN PATIENT [facility] MEDICAID ID DEPT [facility] Aug 25, [id number] Jessica LEIGH ENJAMIN PATIENT [facility] MEDICAID [facility] Dec 19, 2018 [id number] Jessica LEIGH ENJAMIN PATIENT MEDICARE (WNR) MEDICARE (M) PART A Aug 25, 2010 PART A [id number] Jessica LEIGH PATIENT MEDICARE (WNR) MEDICARE (M) PART B Aug 25, 2010 PART B [id number] Jessica LEIGH ENGMMIN PATIENT [facility] PHUONG CARTER DT Mar 27, 2022 [id number] Jessica LEIGH ENGMMIN PATIENT [facility] AIDA BOWENS H Mar 27, 2021 [id number] [phone] Jessica LEIGH ENKARISSA PATIENT [facility] POINT OF SERVICE ALISA Dumont Mar 27, 2021 [id number] [phone] Jessica LEIGH PATIENT Selected Encounter This section includes the information on record at [place] for the Encounter. Date/Time Encounter Type Encounter Description Reason Provider Source August 02, 2023 08:00 AM PSYTX W PT 45 MINUTES [facility] - [facility] ICD-10-CM F43.12 Post-traumatic stress disorder, chronic NEY DONOVAN Reddy Encounter Template Text not used by [place] Assessments - Encounter Diagnoses This section includes the primary and secondary diagnoses documented for the Encounter. Date/Time Primary/Secondary Diagnosis Diagnosis Name Provider Source August 02, 2023 08:58 AM PRIMARY Post-traumatic stress disorder, chronic DARSHAN DONOVAN [facility] Plan of Treatment: Future Appointments (+ 6 months) and Future Tests (+/- 45 days) The Plan of Treatment section includes future care activities for the patient from all [place] treatmentfacilities. This section includes future appointments and future orders which are active, pending or scheduled. Future Appointments This section includes appointments that were scheduled to occur 6 months from the date of the Encounter, up to a maximum of 20 appointments. The data comes from all [place] treatment facilities. Appointment Date/Time Appointment Type Appointme nt Facility Name Aug 29, 2023 11:00 AM [place] [facility] [place] [facility] Aug 30, 2023 08:00 AM [facility] [place] [facility] Sep 07, 2023 01:00 PM [place] [facility] [place] [facility] Sep 14, 2023 01:00 PM [facility]ICINE [facility] [place] [facility] Sep 26, 2023 11:00 AM [facility]ICINE [facility] [place] [facility] Sep 27, 2023 08:00 AM AMBULATORY - PS[facility]CHIATRY [facility] [place] [facility] Oct 12, 2023 01:00 PM AM[facility]ATORY [facility] MEDICINE [facility] [place] [facility] Oct 13, 2023 10:00 AM AM[facility]ULATORY [facility]ICINE [facility] [place] [facility] Oct 13, 2023 11:30 AM AMBULATORY - PS[facility]CHIATRY [facility] [place] [facility] Oct 27, 2023 04:00 PM AMBULATORY - MEDICINE [facility] [place] [facility] Nov 01, 2023 08:00 AM AMBULATORY - PS[facility]CHIATRY [facility] [place] [facility] Nov 29, 2023 08:00 AM AMBULATORY - PS[facility]CHIATRY [facility] [place] [facility] Jan 03, 2024 08:00 AM AMBULATORY - PS[facility]CHIATRY [facility] [place] [facility] Jan 11, 2024 11:00 AM AMBULATORY - PS[facility]CHIATRY [facility] [place] [facility] Jan 31, 2024 09:00 AM AMBULATORY - PS[facility]CHIATRY [facility] [place] [facility] Social History: Smoking Status (Most current) and Tobacco Use (All prior to encounter date) This section includes the most current, and the historical, smoking and tobacco- related health factors from the [place] facility where the Encounter took place. Current Smoking Status This section includes the most current smoking, or tobacco-related health factor, from the [place] facility where the Encounter took place. Date/Time Current Smoking Status Comment Facil ity Feb 08, 2023 08:00 AM VA-TOBACCO FORMER USER [facility] Tobacco Use History This section includes a history of the smoking, or tobacco-related health factors, that were collected on or before the date of the Encounter. The data comes from the [place] facility where the Encounter took place. Date/Time Smoking Status/Tobacco Use Comment F acility Feb 08, 2023 08:00 AM VA-TOBACCO QUIT 5 TO < 15 YRS [facility] Jun 18, 2020 09:00 AM VA-TOBACCO FORMER USER [facility] Jun 18, 2020 09:00 AM VA-TOBACCO QUIT 15 YRS OR MORE [facility] August 01, 2018 03:38 PM VA-TOBACCO NEVER USED [facility] Jul 06, 2017 10:33 AM QUIT TOBACCO USE > 7 YEARS AGO [facility] Jun 09, 2016 08:41 AM QUIT TOBACCO USE 1 -7 YEARS AGO [facility] Apr 01, 2015 09:41 AM QUIT TOBACCO USE > 7 YEARS AGO [facility] August 05, 2013 02:26 PM QUIT TOBACCO USE 1 -7 YEARS AGO [facility] Jan 24, 2013 02:38 PM QUIT TOBACCO USE 1 -7 YEARS AGO [facility] Feb 23, 2012 03:09 PM QUIT TOBACCO USE 1 -7 YEARS AGO pt quite smoking cigaretts in 2007. [facility] Mar 11, 2011 02:33 PM CURRENT SMOKER Patient smokes one pack of cigerets every three months. [facility] Mar 11, 2011 02:33 PM QUIT TOBACCO USE 1 -7 YEARS AGO [facility] Mar 30, 2009 08:38 AM QUIT TOBACCO USE 1 -7 YEARS AGO [facility] Mar 11, 2009 01:41 PM QUIT TOBACCO USE I N PAST YEAR [facility] Feb 07, 2008 02:05 PM QUIT TOBACCO USE 1 -7 YEARS AGO [facility] Encounter Notes: All associated encounter notes This section contains the clinical notes associated to the Encounter. Date/Time Encounter Note(s) Provider Source August 02, 2023 08:59 AM ADDENDUM: LOCAL TITLE: Addendum STANDARD TITLE: ADDENDUM DATE OF NOTE: AUGUST 02, 2023@08:59:13 ENTRY DATE: AUGUST 02, 2023@08:59:14 AUTHOR: ZAIDA DONOVAN COSIGNER: URGENCY: STATUS: COMPLETED RTC for 08/29@8am /atif/ ZAIDA DONOVAN CLINICAL PSYCHOLOGIST Signed: 08/02/2023 08:59 Receipt Acknowledged By: 08/02/2023 10:34 /atif/ BABAK ALVES [employer]ACH[employer] HOSE --- Original Document --- 08/02/23 PSYCHOLOGY NOTE: INFORMED CONSENT REVIEWED: At beginning of session reviewed rights and limits of confidentiality, mandatory reporting situations, duty to warn and protect, Carlin Warning, (if treatment team finds patient to be an acute danger to himself or others, that this information could be relayed to a court of law and presented to a enterprise applications manager), and DOD access for active duty service members. Provided Suicide Prevention Hotline number, and other contact numbers as necessary. VISIT DURATION 45 minutes DIAGNOSES: Chronic PTSD VETERANS STATEMENT OF GOALS/CONCERNS: Lak[place]ore experienced improvement in PTSD symptoms following CPT and is currently interested in maintaining gains SESSION FOCUS: Lakemore reports that he's doing well and doesn't note anything that he'd like to focus on today in session. He does bring up that he and his had some conflict about her employment and how she manages her relationship with her artist and repertoire manager. He explains that she gets very frustrated when she feels like her artist and repertoire manager isn't doing a good job managing and rather than understanding that each artist and repertoire manager is going to have certain weak points and sometimes you need to cope with that, she wants to find a new job instead. He continues to be the consistent earner in the family and doesn't feel like he has the ability to make the same decisions for himself. He is currently looking for a new job because his sector might be disbanded somewhat soon. He'd been looking more passively for a while but is now being more aggressive in his search. In general, however, he feels things are going well and he's able to cope with stressors that come up. We agreed to continue meeting monthly for now but will continue checking in about need for continued sessions. INTERVENTIONS: Psychotherapeutic Interventions: active listening, validation ASSESSMENT: BRIEF ASSESSMENT OF MENTAL STATUS: 1. [...] or delusions): Yes 8. Mood was normal: Yes Other Observations: RISK ASSESSMENT: Denies current suicidal/homicidal ideation PLAN FOR FOLLOW-UP: Continue with monthly follow up. Next session planned for: 08/29@8am /atif/ ZAIDA DONOVAN CLINICAL PSYCHOLOGIST Signed: 08/02/2023 08:59 ZAIDA DONOVAN Natalie [facility] August 02, 2023 08:52 AM PSYCHOLOGY NOTE: LOCAL TITLE: PSYCHOLOGY NOTE STANDARD TITLE: PSYCHOLOGY NOTE DATE OF NOTE: AUGUST 02, 2023@08:52 ENTRY DATE: AUGUST 02, 2023@08:52:48 AUTHOR: ZAIDA DONOVAN EXP COSIGNER: URGENCY: STATUS: COMPLETED PSYCHOLOGY NOTE Has ADDENDA INFORMED CONSENT REVIEWED: At beginning of session reviewed rights and limits of confidentiality, mandatory reporting situations, duty to warn and protect, Carlin Warning, (if treatment team finds patient to be an acute danger to himself or others, that this information could be relayed to a court of law and presented to a enterprise applications manager), and DOD access for active duty service members. Provided Suicide Prevention Hotline number, and other contact numbers as necessary. VISIT DURATION 45 minutes DIAGNOSES: Chronic PTSD VETERANS STATEMENT OF GOALS/CONCERNS: experienced improvement in PTSD symptoms following CPT and is currently interested in maintaining gains SESSION FOCUS: Lakemore reports that he's doing well and doesn't note anything that he'd like to focus on today in session. He does bring up that he and his had some conflict about her employment and how she manages her relationship with her artist and repertoire manager. He explains that she gets very frustrated when she feels like her artist and repertoire manager isn't doing a good job managing and rather than understanding that each artist and repertoire manager is going to have certain weak points and sometimes you need to cope with that, she wants to find a new job instead. He continues to be the consistent earner in the family and doesn't feel like he has the ability to make the same decisions for himself. He is currently looking for a new job because his sector might be disbanded somewhat soon. He'd been looking more passively for a while but is now being more aggressive in his search. In general, however, he feels things are going well and he's able to cope with stressors that come up. We agreed to continue meeting monthly for now but will continue checking in about need for continued sessions. INTERVENTIONS: Psychotherapeutic Interventions: active listening, validation ASSESSMENT: BRIEF ASSESSMENT OF MENTAL STATUS: 1. [...] or delusions): Yes 8. Mood was normal: Yes Other Observations: RISK ASSESSMENT: Denies current suicidal/homicidal ideation PLAN FOR FOLLOW-UP: Continue with monthly follow up. Next session planned for: 08/29@8am /atif/ ZAIDA DONOVAN CLINICAL PSYCHOLOGIST Signed: 08/02/2023 08:59 08/02/2023 ADDENDUM STATUS: COMPLETED RTC for 08/29@8am /atif/ ZAIDA DONOVAN CLINICAL PSYCHOLOGIST Signed: 08/02/2023 08:59 Receipt Acknowledged By: * AWAITING SIGNATURE * BABAK ALVES CHRISTINE G [place]
--- OUTSIDE RECORDS SUMMARY | 2024-07-24 08:03 | XMS_ITS | Encounter Summary ---
Author Organization [facility] Address [address] [place] [address] Care Team Providers Care Director Retirement Name Role Phone Derrick Olea MD Primary Care Provider Encounter Details Date Type Department Care Team (Latest Contact Info) Description 07/18/2024 9:32 AM EDT - 07/18/2024 11:59 PM EDT Hospital Encounter [facility] [address] [place] [id number] Upper respiratory tract infection, unspecified type; Acute cough Discharge Disposition: Home or Self Care Social [...] Info) Description 09/09/2024 2:00 PM EDT Appointment [facility] [address] [place] [phone] Yinka Velarde MD [address] [place] [address] documented as of this encounter Procedures Procedure Name Priority Date/Time Associated Diagnosis Comments XR CHEST 2 VIEWS Routine 07/18/2024 9:41 AM EDT Upper respiratory tract infection, unspecified type Acute cough documented in this encounter Results * XR Chest 2 Views (07/18/2024 9:41 AM EDT) Anatomical Region Laterality Modality Body Radiographic Yohana ging 07/18/2024 9:55 AM EDT Impressions 07/18/2024 9:56 AM EDT No acute pulmonary pathology. -------- FINAL REPORT -------- Dictated By: Oriana Hernandez Dictated Date: 07/18/2024 09:55 ET Assigned Physician: Oriana Hernandez Reviewed and Electronically Signed By: Oriana Hernandez Signed Date: 07/18/2024 09:56 ET Workstation ID: [id number] Transcribed By: Self Edit Transcribed Date: 07/18/2024 [...] Signed Date: 07/18/2024 09:56 ET Workstation ID: [id number] Transcribed By: Self Edit Transcribed Date: 07/18/2024 09:55 ET us Derrick Olea MD IMG XR PROCEDURES Final Res ult documented in this encounter Visit Diagnoses Diagnosis Upper respiratory tract infection, unspecified type Acute cough documented in this encounter Care Teams Director Retirement Relationship Specialty Start Date End Date Derrick Olea MD [address] [facility] [place] [address] PCP - General 06/09/22 documented as of this encounter
--- OUTSIDE RECORDS SUMMARY | 2024-07-24 08:03 | XMS_ITS | Encounter Summary ---
Author Organization [facility] Address [address] [place] [address] Encounters * Online digital evaluation and management service, for an established patient, 21+ minutes during the 7 days, 21+ minutes with Sissy Manzanares at [facility] on y/o male patient presents for management of Hemorrhoids We evaluated Avni Marcum for Hemorrhoids during this period from 2024-05-14 to 2024-05-21.A log history of our dialog is attached below. PHR was confirmed per below. 1. Unspecified hemorrhoids (K64.9) PSA referral update to confirm office has all necessary information. F/u updated 30d Written by Sissy Manzanares on 2024-05-14
--- OUTSIDE RECORDS SUMMARY | 2024-07-24 08:03 | XMS_ITS | Encounter Summary ---
Author Name [facility] [place] [place] [facility] [place] Address [address] [place] [address] Care Team Providers Care Refurbish Technician Name Role Phone OSCAR MARQUEZ Primary Care [...] Patient's Relationship to Policy Guillory [employer] ([id number]) PRESCRIPT ION RX Mar 27, 2021 [facility] [id number] Jessica LEIGH ENJAMIN PATIENT [employer] ([id number]) PRESCRIPT ION Nov 08, 2016 TA [id number] Jessica LEIGH ENJAMIN PATIENT [facility] MEDICAID [facility]ICAID [facility] Aug 25, [id number] Jessica LEIGH ENJAMIN PATIENT [facility] [place] DE[place] [facility] Aug 25, [id number] Jessica LEIGH ENJAMIN PATIENT [facility] MEDICAID [facility] Dec 19, 2018 [id number] Jessica LEIGH ENJAMIN PATIENT MEDICARE (WNR) MEDICARE (M) PART A Aug 25, 2010 PART A [id number] [phone] Jessica LEIGH PATIENT MEDICARE (WNR) MEDICARE (M) PART B Aug 25, 2010 PART B [id number] Jessica LEIGH ENGMMIN PATIENT [facility] PHUONG CARTER DT Mar 27, 2022 [id number] Jessica LEIGH PATIENT [facility] MENTAL HEALTH AIDA BOWENS H Mar 27, 2021 [id number] Jessica LEIGH ENKARISSA PATIENT [facility] POINT OF SERVICE ALISA ESPINOSA T Mar 27, 2021 [id number] [phone] Jessica LEIGH PATIENT Selected Encounter This section includes the information on record at [place] for the Encounter. Date/Time Encounter Type Encounter Description Reason Provider Source Jul 03, 2024 09:00 AM PSYTX W PT 45 MINUTES [facility] - IND ICD-10-CM F43.12 Post-traumatic stress disorder, chronic NEY DONOVAN [place] Encounter Template Text not used by [place] Assessments - Encounter Diagnoses This section includes the primary and secondary diagnoses documented for the Encounter. Date/Time Primary/Secondary Diagnosis Diagnosis Name Provider Source Jul 03, 2024 10:40 AM PRIMARY Post-traumatic stress disorder, chronic DARSHAN DONOVAN [place] Plan of Treatment: Future Appointments (+ 6 months) and Future Tests (+/- 45 days) The Plan of Treatment section includes future care activities for the patient from all [place] treatmentfacilities. This section includes future appointments and future orders which are active, pending or scheduled. Future Appointments This section includes appointments that were scheduled to occur 6 months from the date of the Encounter, up to a maximum of 20 appointments. The data comes from all [place] treatment facilities. Appointment Date/Time Appointment Type Appointme nt Facility Name July 31, 2024 09:00 [facility] August 01, 2024 07:30 AM AMBULATORY - REH[place] [facility] [place] [facility] [place] Aug 28, 2024 09:00 AM AMBULATORY - [facility]CHIATRY [facility] [place] [facility] Sep 09, 2024 02:00 PM AMBULATORY - NONE [place] [facility] [facility] Sep 17, 2024 03:30 PM AMBULATORY - [place] [facility] Sep 17, 2024 03:30 PM AMBULATORY - PSYCHIATRY [place] [facility] [facility] Nov 18, 2024 09:00 AM AMBULATORY - MEDICINE [place] Active, Pending, and Scheduled Orders This section includes a listing of several types of active, pending, and scheduled orders, including clinic medications orders, diagnostic test orders, procedure orders and consult orders; where the start date of the order is 45 days before the date of the Encounter or 45 days after the date of theEncounter. The data comes from all [place] treatment facilities. Test Date/Time Test Type Test Details Facility Name Jun 26, 2024 10:08 AM Consult Order VISN 1 [facility] PSYCHIATRY OUTPT [facility] Jul 04, 2024 03:10 PM Consult Order COMMUNITY CARE-COLONOSCOPY SURVEILLANCE [facility] [employer] [facility] Jul 08, 2024 07:18 AM Consult Order OCCUPATION AL THERAPY OUTPT [facility] [employer] [facility] Social History: Smoking Status (Most current) and Tobacco Use (All prior to encounter date) This section includes the most current, and the historical, smoking and tobacco- related health factors from the [place] facility where the Encounter took place. Current Smoking Status This section includes the most current smoking, or tobacco-related health factor, from the [place] facility where the Encounter took place. Date/Time Current Smoking Status Comment Claire ity Mar 06, 2024 02:00 PM [place]-TOBACCO NEVER USED CIGARETTES [place] Tobacco Use History This section includes a history of the smoking, or tobacco-related health factors, that were collected on or before the date of the Encounter. The data comes from the [place] facility where the Encounter took place. Date/Time Smoking Status/Tobacco Use Comment F acility Mar 06, 2024 02:00 PM [place]-TOBACCO NEVER U SED OTHER TYPE [facility] [place] Feb 08, 2023 08:00 AM VA-TOBACCO FORMER USER [facility] Feb 08, 2023 08:00 AM VA-TOBACCO QUIT 5 TO < 15 YRS [facility] [place] [facility] Jun 18, 2020 09:00 AM VA-TOBACCO FORMER USER [facility] Jun 18, 2020 09:00 AM VA-TOBACCO QUIT 15 YRS OR MORE [facility] [place] [facility] August 01, 2018 03:38 PM VA-TOBACCO NEVER USED [facility] [place] Jul 06, 2017 10:33 AM QUIT TOBACCO USE > 7 YEARS AGO [place] [place] Jun 09, 2016 08:41 AM QUIT TOBACCO USE 1 -7 YEARS AGO [place] [place] Apr 01, 2015 09:41 AM QUIT TOBACCO USE > 7 YEARS AGO [facility] [place] August 05, 2013 02:26 PM QUIT TOBACCO USE 1 -7 YEARS AGO [place] [place] Jan 24, 2013 02:38 PM QUIT TOBACCO USE 1 -7 YEARS AGO [place] Feb 23, 2012 03:09 PM QUIT TOBACCO USE 1 -7 YEARS AGO pt quite smoking cigaretts in 2007. [place] Mar 11, 2011 02:33 PM CURRENT SMOKER Patient smokes one pack of cigerets every three months. [place] Mar 11, 2011 02:33 PM QUIT TOBACCO USE 1 -7 YEARS AGO [place] [place] Mar 30, 2009 08:38 AM QUIT TOBACCO USE 1 -7 YEARS AGO [place] [place] Mar 11, 2009 01:41 PM QUIT TOBACCO USE I N PAST YEAR [place] Feb 07, 2008 02:05 PM QUIT TOBACCO USE 1 -7 YEARS AGO [place] Encounter Notes: All associated encounter notes This section contains the clinical notes associated to the Encounter. 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 Provided Suicide Prevention Hotline number, and other contact numbers as necessary. VISIT DURATION Other: 50 identified with 2 identifiers: Full Name, Facial Recognition DIAGNOSES: Chronic PTSD [employer] STATEMENT OF GOALS/CONCERNS: Benicia shared that he's been having more flashbacks recently because of having to deal with a lot of blood at work. 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 He states that he continues to smell blood for days after and this leads to more flashbacks/dissociations. He has ways of dealing with this and has managed to keep it from affecting his relationships or how he interacts with others but it's upsetting for him. He states that his [employer] is trying to investigate why there have been so many of these incidents across the country and will hopefully fix whatever defect is leading to these breaks. We talked about trying to use better masking to prevent smelling the blood during the cleanup, to see if this helps with the lingering impact such as wearing an N95 and putting an essential oil on his upper lip, so he's smelling that instead of blood. He also recognizes that distraction can help in the moment when he's noticing the smell. Self talk also helps-- it's not real. I'm safe and things like that. He recongizes that this is temporary but life underwriter validates that it would be a hard thing to be unaffected by, especially given his history. On the positive side, he's looking forward to a cruise, which he's going on in about a month with his family and a number of his friends. INTERVENTIONS: Psychotherapeutic Interventions: active listening, validation, discussion about active coping ASSESSMENT: BRIEF ASSESSMENT OF MENTAL STATUS: 1. [...] delusions): Yes 8. Mood was normal: No some dysthymia related to recent flashbacks Other Observations: RISK ASSESSMENT: Denies current suicidal/homicidal ideation PLAN FOR FOLLOW-UP: Next session planned for: 07/31@9am Other Scheduled visits: Future Clinic Visits 07/31/2024 09:00 SPR MHC PSYLG 1 09/17/2024 15:30 CWM V01 [facility] ADM MH 14 11/18/2024 09:00 SPR PACT 5 /atif/ ZAIDA DONOVAN CLINICAL PSYCHOLOGIST Signed: 07/03/2024 10:40 ZAIDA DONOVAN [place] Jul 03, 2024 10:32 AM PSYCHOLOGY NOTE: LOCAL TITLE: PSYCHOLOGY NOTE STANDARD TITLE: PSYCHOLOGY NOTE DATE OF NOTE: JUL 03, 2024@10:32 ENTRY DATE: JUL 03, 2024@10:32:46 AUTHOR: ZAIDA DONOVAN EXP COSIGNER: URGENCY: STATUS: [...] court of law and presented to a leaf sorter), and DOD access for active duty service members. Provided Suicide Prevention Hotline number, and other contact numbers as necessary. VISIT DURATION Other: 50 identified with 2 identifiers: Full Name, Facial Recognition DIAGNOSES: Chronic PTSD [employer] STATEMENT OF GOALS/CONCERNS: Benicia shared that he's been having more flashbacks recently because of having to deal with a lot of blood at work. 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 He states that he continues to smell blood for days after and this leads to more flashbacks/dissociations. He has ways of dealing with this and has managed to keep it from affecting his relationships or how he interacts with others but it's upsetting for him. He states that his company is trying to investigate why there have been so many of these incidents across the country and will hopefully fix whatever defect is leading to these breaks. We talked about trying to use better masking to prevent smelling the blood during the cleanup, to see if this helps with the lingering impact such as wearing an N95 and putting an essential oil on his upper lip, so he's smelling that instead of blood. He also recognizes that distraction can help in the moment when he's noticing the smell. Self talk also helps-- it's not real. I'm safe and things like that. He recongizes that this is temporary but life underwriter validates that it would be a hard thing to be unaffected by, especially given his history. On the positive side, he's looking forward to a cruise, which he's going on in about a month with his family and a number of his friends. INTERVENTIONS: Psychotherapeutic Interventions: active listening, validation, discussion about active coping ASSESSMENT: BRIEF ASSESSMENT OF MENTAL STATUS: 1. [...] delusions): Yes 8. Mood was normal: No some dysthymia related to recent flashbacks Other Observations: RISK ASSESSMENT: Denies current suicidal/homicidal ideation PLAN FOR FOLLOW-UP: Next session planned for: 07/31@9am Other Scheduled visits: Future Clinic Visits 07/31/2024 09:00 SPR MHC PSYLG 1 09/17/2024 15:30 CWM V01 CR[facility] ADM [place] [place] 14 11/18/2024 09:00 SPR PACT 5 /atif/ ZAIDA DONOVAN CLINICAL PSYCHOLOGIST Signed: 07/03/2024 10:40 07/03/2024 ADDENDUM STATUS: COMPLETED additional RTC for 08/28@9am /atif/ ZAIDA DONOVAN CLINICAL PSYCHOLOGIST Signed: 07/03/2024 10:46 Receipt Acknowledged By: * AWAITING SIGNATURE * CHASITY TREJO,ZAIAD DONAHUE
--- OUTSIDE RECORDS SUMMARY | 2024-07-24 08:03 | XMS_ITS | Clinical Summary ---
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 Name Role Phone Unavailable Primary Care Provider Unavailabl e Social History Tobacco Use Types Packs/Day Years Used Date Smoking Tobacco: Never Assessed Sex and Gender Information Value Date Recorded Sex Assigned at Male 07/03/2024 10:04 AM EDT Legal Sex Male 10:02 AM EDT Gender Identity Male 07/03/2024 10:04 AM EDT Sexual Orientation Straight 07/03/2024 10 :04 AM EDT Plan of Treatment Upcoming Encounters Date Type Department Care Team (Late st Contact Info) Description 08/15/2024 11:00 AM EDT Office Visit [facility] [address] [place] [address] Queenie Noemi [address], [place] [phone] Health Maintenance Due Date Last Done Comments Depression Screening 1984 HIV Screening 1984 Lipid Panel 1984 SDOH Screening 1984 Alcohol/Substance Use Screening 1996 Tobacco Screening 1996 Family Planning (PISQ) 08/22/1999 Hepatitis C Screening 2002 DTaP/Tdap/Td Vaccines (1 - Tdap) 08/22/2003 Hepatitis B Vaccines (1 of 3 - 19+ 3-dose series) 08/22/2003 COVID-19 Vaccine (1 - 2023-2 5 season) 2023 Influenza Vaccine (#1) 2023 Zoster Vaccines (1 of 2) 2034 RSV Patients and Pa tients Aged 60 years or older (1 - 1-dose 75+ series) 08/22/2059 HIB Vaccines Aged Out No longer eligi ble based on patient's age to complete this topic HPV Vaccines Aged Out No longer eligi ble based on patient's age to complete this topic Hepatitis A Vaccines Aged Out No long er eligible based on patient's age to complete this topic IPV Vaccines Aged Out No longer eligi ble based on patient's age to complete this topic Meningococcal Vaccine Aged Out No sally asa eligible based on patient's age to complete this topic Pneumococcal Vaccine: Pediat rics (0 to 5 Years) and At-Risk Patients (6 to 49) Years) Aged Out No longer eligible b ased on patient's age to complete this topic RSV under 20 months Aged Out No longe r eligible based on patient's age to complete this topic Rotavirus Vaccines Aged Out No longer eligible based on patient's age to complete this topic Insurance [facility]
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
--- OUTSIDE RECORDS SUMMARY | 2024-07-24 08:04 | XMS_ITS | Encounter Summary ---
Author Name [facility] [place] [facility] [place] [facility] [place] Address [address] [place] [address] Care Team Providers Care Cost Recorder Name Role Phone OSCAR MARQUEZ Primary Care [...] Patient's Relationship to Policy Guillory [employer] ([id number]) PRESCRIPT ION RX Mar 27, 2021 [facility] [id number] Jessica LEIGH ENJAMIN PATIENT [employer] ([id number]) PRESCRIPT ION Nov 08, 2016 TA [id number] Jessica LEIGH ENJAMIN PATIENT [facility] MEDICAID [facility] Aug 25, [id number] Jessica LEIGH ENJAMIN PATIENT [facility] [place]ICAID [place] HUMAN [facility] Aug 25, [id number] Jessica LEIGH ENJAMIN PATIENT [facility] MEDICAID [facility] Dec 19, 2018 [id number] Jessica LEIGH ENJAMIN PATIENT MEDICARE (WNR) MEDICARE (M) PART A Aug 25, 2010 PART A [id number] Jessica LEIGH PATIENT MEDICARE (WNR) MEDICARE (M) PART B Aug 25, 2010 PART B [id number] Jessica LEIGH ENGMMIN PATIENT [facility] PHUONG CARTER DT Mar 27, 2022 [id number] Jessica LEIGH PATIENT [facility] MENT[facility] HEALTH AIDA BOWENS H Mar 27, 2021 [id number] Jessica LEIGH ENKARISSA PATIENT [facility] POINT OF SERVICE ALISA ESPINOSA T Mar 27, 2021 [id number] [phone] Jessica LEIGH PATIENT Selected Encounter This section includes the information on record at [place] for the Encounter. Date/Time Encounter Type Encounter Description Reason Provider Source Jun 05, 2024 09:00 AM PSYTX W PT 45 MINUTES [facility] - IND ICD-10-CM F43.12 Post-traumatic stress disorder, chronic NEY DONOVAN Reddy Encounter Template Text not used by [place] Assessments - Encounter Diagnoses This section includes the primary and secondary diagnoses documented for the Encounter. Date/Time Primary/Secondary Diagnosis Diagnosis Name Provider Source Jun 05, 2024 10:58 AM PRIMARY Post-traumatic stress disorder, chronic DARSHAN DONOVAN [facility] Plan of Treatment: Future Appointments (+ 6 months) and Future Tests (+/- 45 days) The Plan of Treatment section includes future care activities for the patient from all [place] treatmentfacilities. This section includes future appointments and future orders which are active, pending or scheduled. Future Appointments This section includes appointments that were scheduled to occur 6 months from the date of the Encounter, up to a maximum of 20 appointments. The data comes from all [place] treatment facilities. Appointment Date/Time Appointment Type Appointme nt Facility Name Jul 03, 2024 09:00 AM AM[place]ULATORY [place] [facility] July 31, 2024 09:00 AM [facility] August 01, 2024 07:30 AM AMBULAT[facility] - REHAB MEDICIN [facility] Aug 28, 2024 09:00 AM AMBULATORY - [facility]ATRY [facility] Sep 09, 2024 02:00 PM AMBULATORY - NONE [facility] Sep 17, 2024 03:30 PM AM[facility]UL[facility] [place] [facility] Sep 17, 2024 03:30 PM [facility] Nov 18, 2024 09:00 AM AMBULATORY - [...] of theEncounter. The data comes from all [place] treatment facilities. Test Date/Time Test Type Test Details Facility Name Jun 26, 2024 10:08 AM Consult Order VISN [facility] OUTPT IFC CT Cons Dipper Machine Operator's Choice [facility] Jul 04, 2024 03:10 PM Consult Order COMMUNITY CARE-COLONOSCOPY SURVEILLANCE [facility] Dipper Machine Operator's [facility] Jul 08, 2024 07:18 AM Consult Order OCCUPATION AL THERAPY OUTPT [facility] Dipper Machine Operator's [facility] Lab Results: +/- 30 days of the encounter This section includes the Chemistry and Hematology Lab Results on record with [place] for the patient. Radiology Reports and Pathology Reports are provided separately, in subsequent sections. Lab Results This section contains the Chemistry/Hematology Results that were resulted 30 days before or 30 daysafter the date of the Encounter. Date/Time Source Result Type Result - Unit Interpretation Reference Range Specimen Type Comment May 16, 2024 01:49 PM [facility] URIC ACID SERUM Specimen Type: SERUM No comment entered. Ordering Provider: OSCAR MARQUEZ Report Released Date/Time: Mar 06, 2024 02:12 PM Reporting Lab: [address] [address] Performing Lab: [address] [address] URIC ACID 5.6 mg/dL 3.5-7.2 May 16, 2024 01:49 PM [facility] VITAMIN D (25-OH) SERUM Specimen Type: SERUM No comment entered. Ordering Provider: OSCAR MARQUEZ Report Released Date/Time: Mar 06, 2024 02:12 PM Reporting [facility]: [facility] [address] [address] Performing Lab: [address] [address] VITAMIN D (25-OH) 31 ng/mL 20-50 May 16, 2024 01:49 PM [facility] VITAMIN B12 SERUM Specimen Type: SERUM No comment entered. Ordering Provider: OSCAR MARQUEZ Report Released Date/Time: Mar 06, 2024 02:12 PM Reporting Lab: [address] [address] Performing Lab: [address] [address] VITAMIN B12 486 pg/mL 200-900 May 16, 2024 01:49 PM [facility] CALCIUM SERUM Sp ecimen Type: SERUM No comment entered. Ordering Provider: OSCAR MARQUEZ Report Released Date/Time: Mar 06, 2024 02:12 PM Reporting [facility]: [facility] [address] [address] Performing Lab: [facility] [address] [address] CALCIUM 8.9 mg/dL 8.5-10.2 May 16, 2024 01:49 PM [facility] FERRITIN SERUM Sp ecimen Type: SERUM No comment entered. Ordering Provider: OSCAR MARQUEZ Report Released Date/Time: Mar 06, 2024 02:12 PM Reporting Lab: [facility] [address] Performing Lab: [facility] [address] FERRITIN 182 ng/mL 20-300 May 16, 2024 01:49 PM [facility] HEMOGLOBIN A1C PANEL BLOOD Specimen T ype: [...] Mar 06, 2024 02:12 PM Reporting Lab: [facility] [address] [address] Performing Lab: [facility] [address] [address] HEMOGLOBIN A1C 4.5 4.0-5.6 May 16, 2024 01:49 PM [facility] TSH SERUM Sp ecimen Type: SERUM No comment entered. Ordering Provider: OSCAR MARQUEZ Report Released Date/Time: Mar 06, 2024 02:12 PM Reporting Lab: [facility] [address] [address] Performing Lab: [facility] [address] [address] TSH 1.17 u[IU]/mL 0.35-5.00 May 16, 2024 01:49 PM [facility] BNP (Natriuretic Peptide Brain) PLASMA Specimen Type: PLASMA No comment entered. Ordering Provider: OSCAR MARQUEZ Report Released Date/Time: Mar 06, 2024 02:12 PM Reporting Lab: [facility] [address] [address] Performing [facility]: [facility] [address] [address] BNP (Natriuretic Peptide Brain) < 10.0 pg/mL 10-100 May 16, 2024 01:49 PM [facility] CBC AND DIFF (AUTO) BLOOD Specimen Ty pe: BLOOD No comment entered. Ordering Provider: OSCAR MARQUEZ Report Released Date/Time: Mar 06, 2024 02:12 PM Reporting Lab: [facility] [address] [address] Performing Lab: [facility] [address] [address] WBC 7.11 10*3/uL 4.50-11.00 RBC 5.16 10*6/uL [...] 0.0 0.0-0.0 NRBC, ABS 0.00 10*3/uL 0.00-0.00 May 16, 2024 01:49 PM [facility] LIVER FUNCTION SERUM Specimen Type: SERUM No comment entered. Ordering Provider: OSCAR MARQUEZ Report Released Date/Time: Mar 06, 2024 02:12 PM Reporting Lab: [address] [address] Performing Lab: [address] [address] PROTEIN,TOTAL 7.4 g/dL 6.0-8.3 ALBUMIN 4.3 g/dL 3.5-5.0 ALKALINE PHOSPHATASE 63 U/L 40-150 AST 24 U/L 5-34 ALT 32 U/L BILIRUBIN, TOTAL 0.6 mg/dL 0.2-1.2 May 16, 2024 01:49 PM [facility] LIPID PANEL FASTING SERUM Specimen Ty pe: SERUM No comment entered. Ordering Provider: OSCAR MARQUEZ Report Released Date/Time: Mar 06, 2024 02:12 PM Reporting Lab: [address] [address] Performing Lab: [address] [address] CHOLESTEROL 197 mg/dL TRIGLYCERIDE 68 mg/dL 0-150 LDL calculated 138 mg/dL H 0-129 CHOL/HDL 4.4 HDL CHOLESTEROL 45 mg/dL 40-60 May 16, 2024 01:49 PM [facility] BASIC METABOLIC PANEL (fasting) SERUM Specimen Type: SERUM No comment entered. Ordering Provider: OSCAR MARQUEZ Report Released Date/Time: Mar 06, 2024 02:12 PM Reporting Lab: [address] [address] Performing Lab: [address] [address] UREA NITROGEN 14 mg/dL 7-25 GLUCOSE 81 mg/dL 65-100 SODIUM 139 mmol/L 135-145 POTASSIUM 4.4 mmol/L 3.5-5.0 CHLORIDE 106 mmol/L 100-110 CO2 26 meq/L 20-30 CALCIUM 8.9 mg/dL 8.5-10.2 CREATININE, Serum 1.30 mg/dL 0.50-1.40 eGFR(CKD-EPI 2020) 71 mL/min >60 Social History: Smoking Status (Most current) and Tobacco Use (All prior to encounter date) This section includes the most current, and the historical, smoking and tobacco- related health factors from the [place] facility where the Encounter took place. Current Smoking Status This section includes the most current smoking, or tobacco-related health factor, from the [place] facility where the Encounter took place. Date/Time Current Smoking Status Comment Claire ity Mar 06, 2024 02:00 PM [place]-TOBACCO NEVER USED CIGARETTES [facility] Tobacco Use History This section includes a history of the smoking, or tobacco-related health factors, that were collected on or before the date of the Encounter. The data comes from the [place] facility where the Encounter took place. Date/Time Smoking Status/Tobacco Use Comment F acility Mar 06, 2024 02:00 PM [facility]-TOBACCO NEVER U SED OTHER TYPE [facility] Feb 08, 2023 08:00 AM [facility]-TOBACCO FORMER USER [facility] Feb 08, 2023 08:00 AM VA-TOBACCO QUIT 5 TO < 15 YRS [facility] Jun 18, 2020 09:00 AM VA-TOBACCO FORMER USER [facility] Jun 18, 2020 09:00 AM VA-TOBACCO QUIT 15 YRS OR MORE [facility] August 01, 2018 03:38 PM VA-TOBACCO NEVER USED [facility] Jul 06, 2017 10:33 AM QUIT TOBACCO USE > 7 YEARS AGO [facility] Jun 09, 2016 08:41 AM QUIT TOBACCO USE 1 -7 YEARS AGO [facility] Apr 01, 2015 09:41 AM QUIT TOBACCO USE > 7 YEARS AGO [facility] August 05, 2013 02:26 PM QUIT TOBACCO USE 1 -7 YEARS AGO [facility] Jan 24, 2013 02:38 PM QUIT TOBACCO USE 1 -7 YEARS AGO [facility] Feb 23, 2012 03:09 PM QUIT TOBACCO USE 1 -7 YEARS AGO pt quite smoking cigaretts in 2007. [facility] Mar 11, 2011 02:33 PM CURRENT SMOKER Patient smokes one pack of cigerets every three months. [facility] Mar 11, 2011 02:33 PM QUIT TOBACCO USE 1 -7 YEARS AGO [facility] Mar 30, 2009 08:38 AM QUIT TOBACCO USE 1 -7 YEARS AGO [facility] Mar 11, 2009 01:41 PM QUIT TOBACCO USE I N PAST YEAR [facility] Feb 07, 2008 02:05 PM QUIT TOBACCO USE 1 -7 YEARS AGO [facility] Encounter Notes: All associated encounter notes This section contains the clinical notes associated to the Encounter. Date/Time Encounter Note(s) Provider Source Jun 05, 2024 11:04 AM ADDENDUM: LOCAL TITLE: Addendum STANDARD TITLE: ADDENDUM DATE OF NOTE: JUN 05, 2024@11:04:04 ENTRY DATE: JUN 05, 2024@11:04:05 AUTHOR: ZAIDA DONOVANIGNER: URGENCY: STATUS: COMPLETED RTC for 07/31@9am /atif/ ZAIDA DONOVAN CLINICAL PSYCHOLOGIST Signed: 06/05/2024 11:04 Receipt Acknowledged By: 06/05/2024 11:31 /atif/ Chasity Trejo ADVANCED BARREL PLATER --- Original Document --- 06/05/24 PSYCHOLOGY NOTE: INFORMED CONSENT REVIEWED: At beginning of session reviewed rights and limits of confidentiality, mandatory reporting situations, duty to warn and protect, [place]lin Warning, (if treatment team finds patient to be an acute danger to himself or others, that this information could be relayed to a court of law and presented to a can bander operator), and DOD access for active duty service members. Provided Suicide Prevention Hotline number, and other contact numbers as necessary. VISIT DURATION Other: 50 Arona identified with 2 identifiers: Full Name, Facial Recognition DIAGNOSES: Chronic PTSD [employer] STATEMENT OF GOALS/CONCERNS: Arona continues to meet monthly to maintain gains made in therapy. SESSION FOCUS: Arona reports that he's doing well, overall. He notes that he and his family do still feel some sociopolitical stress but he's managing this by trying to distance a bit from current events. He will essentially read a digest at the end of each day about what happened, as opposed to constantly refreshing news on his phone and finds this much healthier. He also talks about how well his family is doing. In particular, he shares a moment recently with his son, who told him about wonderful he's been as a father and how welcomed into the family he's felt. He shared how far this tells him he's come since he started therapy, which was in response to his son's suicide attempt. He remembers how guilty and responsible he felt at that time and now to see how strong the relationship is and how impactful his role has been with his son is makes him so proud and happy. We discussed how well he's been doing and if there's a continued need for therapy and he states that his preference is to come monthly for maintenance. Medical Assistant Ob Gyn shares that we can continue this but that he should think about goals that we can work on during our time together and he agreed. INTERVENTIONS: Psychotherapeutic Interventions: active listening, validation ASSESSMENT: [...] PLAN FOR FOLLOW-UP: Next session planned for: 9am on 07/03/24 Other Scheduled visits: Future Clinic Visits 07/03/2024 09:00 [facility] PSYLG 1 07/11/2024 09:30 [facility] 1 AM 11/18/2024 09:00 [facility] PACT 5 Suicide Screen: C-SSRS Screening [place]-Suicide Severity Rating Scale (C-SSRS Screener) 1. Over the past month, have you wished you were or wished you could go to sleep and not wake up? No 2. Over the past month, have you had any actual thoughts of killing yourself? No 3. Over the past month, have you been thinking about how you might do this? Response not required due to responses to other questions. 4. Over the past month, have you had these thoughts and had some intention of acting on them? Response not required due to responses to other questions. 5. Over the past month, have you started to work out or worked out the details of how to kill yourself? Response not required due to responses to other questions. 6. If yes, at any time in the past month did you intend to carry out this plan? Response not required due to responses to other questions. 7. In your lifetime, have you ever done anything, started to do anything, or prepared to do anything to end your life (for example, collected pills, obtained a gun, gave away valuables, went to the roof but didn't jump)? Yes 8. If YES, was this within the past 3 months? [place] /atif/ ZAIDA DONOVAN CLINICAL PSYCHOLOGIST Signed: 06/05/2024 11:03 ZAIDA DONOVAN [facility] Jun 05, 2024 09:51 AM PSYCHOLOGY NOTE: LOCAL TITLE: PSYCHOLOGY NOTE STANDARD TITLE: PSYCHOLOGY NOTE DATE OF NOTE: JUN 05, 2024@09:51 ENTRY DATE: JUN 05, 2024@09:51:08 AUTHOR: ZAIDA DONOVAN EXP COSIGNER: URGENCY: STATUS: [...] court of law and presented to a can bander operator), and DOD access for active duty service members. Provided Suicide Prevention Hotline number, and other contact numbers as necessary. VISIT DURATION Other: 50 Arona identified with 2 identifiers: Full Name, Facial Recognition DIAGNOSES: Chronic PTSD [employer]ERANS STATEMENT OF GOALS/CONCERNS: Arona continues to meet monthly to maintain gains made in therapy. SESSION FOCUS: Arona reports that he's doing well, overall. He notes that he and his family do still feel some sociopolitical stress but he's managing this by trying to distance a bit from current events. He will essentially read a digest at the end of each day about what happened, as opposed to constantly refreshing news on his phone and finds this much healthier. He also talks about how well his family is doing. In particular, he shares a moment recently with his son, who told him about wonderful he's been as a father and how welcomed into the family he's felt. He shared how far this tells him he's come since he started therapy, which was in response to his son's suicide attempt. He remembers how guilty and responsible he felt at that time and now to see how strong the relationship is and how impactful his role has been with his son is makes him so proud and happy. We discussed how well he's been doing and if there's a continued need for therapy and he states that his preference is to come monthly for maintenance. Medical Assistant Ob Gyn shares that we can continue this but that he should think about goals that we can work on during our time together and he agreed. INTERVENTIONS: Psychotherapeutic Interventions: active listening, validation ASSESSMENT: [...] PLAN FOR FOLLOW-UP: Next session planned for: 9am on 07/03/24 Other Scheduled visits: Future Clinic Visits 07/03/2024 09:00 [facility] PS[facility] 1 07/11/2024 09:30 [facility] PSYTR 1 AM 11/18/2024 09:00 SPR PACT 5 MD Suicide Screen: C-SSRS Screening [place]-Suicide Severity Rating Scale (C-SSRS Screener) 1. Over the past month, have you wished you were or wished you could go to sleep and not wake up? No 2. Over the past month, have you had any actual thoughts of killing yourself? No 3. Over the past month, have you been thinking about how you might do this? Response not required due to responses to other questions. 4. Over the past month, have you had these thoughts and had some intention of acting on them? Response not required due to responses to other questions. 5. Over the past month, have you started to work out or worked out the details of how to kill yourself? Response not required due to responses to other questions. 6. If yes, at any time in the past month did you intend to carry out this plan? Response not required due to responses to other questions. 7. In your lifetime, have you ever done anything, started to do anything, or prepared to do anything to end your life (for example, collected pills, obtained a gun, gave away valuables, went to the roof but didn't jump)? Yes 8. If YES, was this within the past 3 months? No /atif/ ZAIDA DONOVAN CLINICAL PSYCHOLOGIST Signed: 06/05/2024 11:03 06/05/2024 ADDENDUM STATUS: COMPLETED RTC for 07/31@9am /atif/ ZAIDA DONOVAN CLINICAL PSYCHOLOGIST Signed: 06/05/2024 11:04 Receipt Acknowledged By: * AWAITING SIGNATURE * CHASITY TREJO,ZAIDA DONAHUE
--- OUTSIDE RECORDS SUMMARY | 2024-07-24 08:04 | XMS_ITS ---
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 Role Phone OSCAR MARQUEZ Primary Care [...] Patient's Relationship to Policy Guillory [facility] ([id number]) PRESCRIPT ION RX Mar 27, 2021 [facility] [id number] Jessica MARCUM ENJAMIN PATIENT [employer] [facility] ([id number]) PRESCRIPT ION Nov 08, 2016 TA [id number] Jessica MARCUM ENJAMIN PATIENT [facility] MEDICAID [place]ID [place] [facility] Aug 25, [id number] Jessica MARCUM ENJAMIN PATIENT [facility] [place] [facility] Aug 25, [id number] Jessica MARCUM ENJAMIN PATIENT [facility] MEDICAID [facility] Dec 19, 2018 [id number] Jessica MARCUM ENJAMIN PATIENT MEDICARE (WNR) MEDICARE (M) PART A Aug 25, 2010 PART A [id number] [phone] Jessica MARCUMMIN PATIENT MEDICARE (WNR) MEDICARE (M) PART B Aug 25, 2010 PART B [id number] Jessica MARCUMMIN PATIENT [facility] MENTAL HEALTH PHUONG CARTER DT Mar 27, 2022 [id number] Jessica MARCUMMIN PATIENT [facility] AIDA BOWENS H Mar 27, 2021 [id number] [phone] Jessica MARCUM ENGMMIN PATIENT [facility] POINT OF SERVICE ALISA Dumont Mar 27, 2021 [id number] [phone] Jessica MARCUM PATIENT Selected Encounter This section includes the information on record at [place] for the Encounter. Date/Time Encounter Type Encounter Description Reason Provider Source Mar 01, 2024 02:30 PM Outpatient Encounter GENERAL INTERNAL MEDICINE ICD-10-CM Z77.29 Contact with and exposure to other hazardous substances BELA,COLLE EN A E Encounter Template Text not used by [place] Assessments - Encounter Diagnoses This section includes the primary and secondary diagnoses documented for the Encounter. Date/Time Primary/Secondary Diagnosis Diagnosis Name Provider Source Mar 01, 2024 03:47 PM PRIMARY Contact with and exposure to other hazardous substances BELA,COLLE EN A [place] [facility] [place] [facility] Mar 01, 2024 03:47 PM SECONDARY Constipation, unspecified BELA,COLLE EN A [place] [facility] [place] [facility] Mar 01, 2024 03:47 PM SECONDARY Diarrhea, unspecified BELA,COLLE EN A [facility] [place] [facility] Mar 01, 2024 03:47 PM SECONDARY Dizziness and giddiness BELA,COLLE EN A [place] [facility] [place] [facility] Mar 01, 2024 03:47 PM SECONDARY Frequency of micturition BELA,COLLE EN A [facility] [place] [facility] Mar 01, 2024 03:47 PM SECONDARY Headache, unspecified BELA,COLLE EN A [place] [facility] [place] [facility] Mar 01, 2024 03:47 PM SECONDARY Heartburn BELA,COLLE EN A [facility] [place] [facility] Mar 01, 2024 03:47 PM SECONDARY Nasal congestion BELA,COLLE EN A [facility] [place] [facility] Mar 01, 2024 03:47 PM SECONDARY Nausea BELA,COLLE EN A [facility] [place] [facility] Mar 01, 2024 03:47 PM SECONDARY Nervousness BELA,COLLE EN A [facility] [place] [facility] Mar 01, 2024 03:47 PM SECONDARY Painful micturition, unspecified BELA,COLLE EN A [facility] [place] [facility] Mar 01, 2024 03:47 PM SECONDARY Paresthesia of skin BELA,COLLE EN A [facility] [place] [facility] Mar 01, 2024 03:47 PM SECONDARY Postnasal drip BELA,COLLE EN A [facility] [place] [facility] Mar 01, 2024 03:47 PM SECONDARY Tremor, unspecified BELA,COLLE EN A [facility] [place] [facility] Mar 01, 2024 03:47 PM SECONDARY Unspecified abdominal pain BELA,COLLE EN A [facility] [place] [facility] Mar 01, 2024 03:47 PM SECONDARY Urgency of urination BELA,COLLE EN A [facility] [place] [facility] Plan of Treatment: Future Appointments (+ 6 months) and Future Tests (+/- 45 days) The Plan of Treatment section includes future care activities for the patient from all [place] [facility] This section includes future appointments and future orders which are active, pending or scheduled. Future Appointments This section includes appointments that were scheduled to occur 6 months from the date of the Encounter, up to a maximum of 20 appointments. The data comes from all [place] treatment facilities. Appointment Date/Time Appointment Type Appointme nt Facility Name Mar 06, 2024 02:00 PM AMBULATORY - MEDICINE [facility] Apr 03, 2024 09:00 AM [facility] Apr 11, 2024 09:30 AM [facility] May 08, 2024 09:00 AM [facility] May 16, 2024 12:00 PM AMBULAT[facility] - MEDICINE [facility] May 16, 2024 12:30 PM [facility] Jun 05, 2024 09:00 AM [facility] Jul 03, 2024 09:00 AM [facility] July 31, 2024 09:00 AM [facility] August 01, 2024 07:30 AM AMBULAT[facility] - [facility] Aug 28, 2024 09:00 AM AMBULATORY - PSYCHIATRY [facility] Active, Pending, and Scheduled Orders This section includes a listing of several types of active, pending, and scheduled orders, including clinic medications orders, diagnostic test orders, procedure orders and consult orders; where the start date of the order is 45 days before the date of the Encounter or 45 days after the date of theEncounter. The data comes from all [place] treatment facilities. Test Date/Time Test Type Test Details Facility Name Apr 06, 2024 12:00 AM Laboratory - Chemi stry Order URINALYSIS URINE [facility] Apr 06, 2024 12:00 AM Laboratory - Chemi stry Order MICROALBUMIN CREATININE RATIO PANEL URINE (RANDOM) [facility] Social History: Smoking Status (Most current) and Tobacco Use (All prior to encounter date) This section includes the most current, and the historical, smoking and tobacco- related health factors from the [place] facility where the Encounter took place. Current Smoking Status This section includes the most current smoking, or tobacco-related health factor, from the [place] facility where the Encounter took place. Date/Time Current Smoking Status Comment [facility] Jun 08, 2007 09:39 AM QUIT TOBACCO USE 1 -7 YEARS AGO [facility] Tobacco Use History This section includes a history of the smoking, or tobacco-related health factors, that were collected on or before the date of the Encounter. The data comes from the [place] facility where the Encounter took place. Date/Time Smoking Status/Tobac co Use Comment Facility Mar 13, 2006 10:06 AM QUIT TOBACCO USE IN PAST YEAR smoked 2-3 cigarettes a day but quit 2 months ago [facility] [place] [facility] Encounter Notes: All associated encounter notes This section contains the clinical notes associated to the Encounter. Date/Time Encounter Note(s) Provider Source Mar 01, 2024 03:54 PM LETTERS: LOCAL TITLE: PATIENT LETTER (T) STANDARD TITLE: LETTERS DATE OF NOTE: MAR 01, 2024@15:54 ENTRY DATE: MAR 01, 2024@15:54:58 AUTHOR: GILMAR CRAMER COSIGNER: URGENCY: STATUS: COMPLETED [facility] AFFAIRS [facility] Toll Free Number Primary Care Telephone Assistance can be reached at extension [phone] [facility] scheduling can be reached at extension [phone] [facility] scheduling can be reached at ext [phone] [address], [place], [address] Date: March 01, 2024 Dear [place] Avni Marcum, It was a pleasure to meet you for your recent [place] Registry (GW) evaluation at the [facility]. You have now completed your participation in the GW, which supports research into the health outcomes of Veterans like yourself, by gathering information related to your diagnosed health problems that may have resulted from your service and/or environmental exposures. No further action on your part is necessary to be included in the GW. Based upon the history you provided, the exposures identified during your Environmental Exposures exam include: * Contact with and Suspected Exposure to Noise (helicopters) * Contact with and Suspected Exposure to Environmental Pollution (burn pits) * Other Contact with and (Suspected) Exposures Hazardous Substances (oil well fire smoke, sand, dust, fine PM, aircraft exhaust, generator exhaust, solvents, oil, TYLOR-8 fuel) * Exposure to Disaster, War, or Other Hostilities * Contact with and Suspected Exposure to Environmental Tobacco Smoke Previously acknowledged service-connected conditions include: LUMBOSACRAL OR CERVICAL STRAIN (20%-SC) ALLERGIC OR VASOMOTOR RHINITIS (0%-SC) POST-TRAUMATIC STRESS DISORDER (70%-SC) Based upon the history you provided during your registry examination, the following were symptoms reported by you: * Chronic nasal congestion * Postnasal drip * Headache, unspecified * Dizziness, unspecified * Heartburn * Painful urination, unspecified * Urinary urgency * Urinary frequency * Abdominal pain, unspecified * Nausea * Diarrhea, unspecified * Constipation, unspecified * Numbness and tingling bilateral legs * Tremor, right hand, unspecified * Nervousness You should work with a local VSO officer to submit your claims to the Veterans Benefits Administration (VBA). The VBA makes the final determination regarding service connection and benefits. More information is available at the end of this letter. 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 Research is ongoing regarding the long-term effects of Exposures, including burn pit exposures. Primary Care and medical follow up is extremely important for you and your long-term health. Please share a copy of this letter with all of your healtchare providers outside the VA for inclusion in your medical records and to note your exposures so you can be provided exposure informed care. DISABILITY: Registry exams like the one you just completed are not disability exams. If you wish to file an original disability claim related to your environmental exposures, you have a few choices: * File a claim online using an [employer] account at [email or web address]. This is the fastest way to proceed. * Complete and mail the VA Form [id number] (Application for Disability Compensation and Related Compensation Benefits) with a copy of your service treatment records to the following address: Department of [employer] [facility] Claims Intake Center [address] [place] [address]. * Contact the VA Regional Office at for assistance. I would encourage you to register for access to your health records, if you have not already, through [employer]. [email or web address] The VA's Health Outcomes Exposure website is an excellent resource for additional information on exposures related to your service. Thank you for your service to our country and for participating in the [place] War Registry. I hope this information is helpful to you. If you should have further questions regarding the Registry Examination, please do not hesitate to reach out to our department at [phone], Ext [phone]. Sincerely, KATELYNN PattersonP- Registry [place] [address] Included below is a list of PACT Act Presumptions* related to deployments in the following locations: * On or after December 05, 2000, in any of these locations: [place], [place], [place], [place], [place], [place], [place], [place], or the airspace above any of these locations. * On or after October 26, 1989, in any of these locations: [place], [place], [place], [place], [place], [place], [place], the [place]), or the airspace above any of these locations. [place] Presumptive Illnesses The following are presumptive illnesses: * Chronic Fatigue Syndrome * Fibromyalgia * Functional Gastrointestinal Disorders * Undiagnosed Illnesses - symptoms that may include but are not limited to: abnormal weight loss, fatigue, cardiovascular disease, muscle and joint pain, headache, menstrual disorders, neurological and psychological problems, skin conditions, respiratory disorders, and sleep disturbances. * Chronic Multi-Symptom Illness Sincerely, Your Primary Care Team [facility] [address] [address] [place] [address] [phone] [facility] [address] [place] [address] [place] [address] [phone] [facility] [address] [facility] [address] [place] [phone] [place] [address] GILMAR CRAMER [facility] [place] [facility] Mar 01, 2024 02:07 PM NURSE PRACTITIONER NOTE: LOCAL TITLE: GULF WAR EXPOSURE NOTE STANDARD TITLE: NURSE PRACTITIONER NOTE DATE OF NOTE: MAR 01, 2024@14:07 ENTRY DATE: MAR 01, 2024@14:07:39 AUTHOR: GILMAR CRAMER EXP COSIGNER: URGENCY: STATUS: COMPLETED PRIVACY: The was given a copy of the Privacy Act Statement and educated that no individual identifying information will be shared with any third parties outside the VA without the 's consent. The was also advised that only non-identifiable data is used to assess conditions affecting deployed groups of Veterans. PURPOSE OF EXAM: The [place] was advised that registry exams are limited to diagnostic and research purposes only. Treatment: Veterans with any treatment questions or concerns were encouraged to contact their primary care provider. Disability: Veterans with disability claims or questions were encouraged to contact the Veterans Benefits Administration at or online at www.va.gov/disability. PCP name and phone number: HAYES Carmona [facility] Appointment was conducted via [place] Video Connect [facility] appointment information: - Confidentiality and its limits - The importance of having a private and safe location for the service. - The nature of the appointment, which should be treated like an in-person appointment (no smoking or driving during the session, showing up fully dressed, etc). A - Address: Obtained or verified 's address for this appointment. Patient location during visit: Home P - Phone Numbers: - Pre-validate address if e911 is available - If e911 service is not available, get local police, skin carver or other emergency contact numbers from the . If [place] does not know contact emergency contact numbers, you will need to use Emergency Call Relay Center at [phone]. - The [place] confirms the location is safe and private for the visit. Patient home phone PATIENT PHONE - - Others are not in the home or local area who may be contacted in an urgent situation Others present at this appointment with the 's consent (caregiver, family member, etc): S - Surveyed the environment and identified all participants in room. L - Lock the virtual medical room for the encounter. EMERGENCY PLAN In the event of an emergency, the or family may call emergency services, if capable. The telehealth clinician will remain in the virtual medical room until emergency response arrives and handoff to emergency services is complete. If the [place] is unable to make an emergency call, the telehealth clinician should follow the process outlined in the CAPS LOCK section. VETERANS CRISIS LINE: press 1 or 988 and press 1. [employer] Help Desk (NTTHD): [phone] If any connectivity issues are encountered, the visit will be changed to a telephone visit. 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 Service and maintain the helicopter and would ride to [employer] calls. DEPLOYMENTS: 08/2004-12/2005 [facility] Any illness or accidents during service? 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 We had the oldest fleet of helicopters so it was a multimedia author job maintaining the aircraft. Flight line was by the burn pits and on the other side was EOD demoltions. Just outside base flightline were the burning oil wells in [place] and we were flying through the black smoke of the burning oil wells. EXPOSURES RELATED TO DUTIES Burn pits and on the other side was EOD demoltions. Burning oil wells in [place] and we were flying through the black smoke of the burning oil wells. Flew through dust storms, mud storms; operate and walk to an from the flightline in the [facility] We had a single neck gator but it didn't do much for the fine particulates. Dust was so fine it could strip paint off a car. You would walk to work and be sweating and have mud rivulets running down. It was so fine it was like talc powder. You couldn't see the sun and you didn't burn yourself on the aircraft but you had to wash the clothes and shower but you would still have fine PM in your eyes, nose, mouth, ears. We bought dust covers that we put around the mag well and ejection port to cover it and the muzzle. Exhaust fumes from helicopters. Noise from helicopters. Maintenance helicopters exposed to TYLOR-8 fuel, solvents, oil. Generators on the flight line that would be used to prime the generator on the aircraft to start the turbines turning. Exhaust fumes from those. They ran on TYLOR-8 fuel. 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 Head/Neck: States chronic runny nose/postnasal drip, OTC saline nasal spray States chronic sinus congestion Recurrent headaches, states feels like his head is in vice, has them 2-3x month lasting for one-two days longest 3 days, good relief of sx with Tylenol and Advil. States neck stiffness/pain from injury while in Occasional vertigo Bilateral tinnitus that comes and goes No hearing loss with no need for hearing aid per Audiology No persistent hoarseness No pain/difficulty swallowing Eyes: No changes in visual acuity, wears glasses Cardiac: No chest pain/tightness. No syncopal episodes. No palpitations. Respiratory: No cough No wheezing No SOB, breathlessness No snoring No decreased ability to exercise GI: States diarrhea with alternating constipation States Abdominal pain States Nausea No vomiting States Heartburn : States dysuria, urgency, frequency No loss of bladder control States low sperm count unable to have children Musculoskeletal: States joint pain in knees and wrists NEURO: States severe/recurrent VAZQUEZ as noted above in HEENT Occasional numbness/tingling in the legs coincides with back pain States right hand/arm tremors s/e risperidone that has not gone away. 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 FAMILY: No biological children. 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 democrat ILLICIT DRUG USE None PHYSCIAL EXAMINATION - No recent note available to review ASSESSMENT/PLAN Labs: [facility] May 2023 at [facility] EXPOSURES Contact and/or Suspected Exposure to other hazardous substances (oil well fires, sand, dust, fine PM, aircraft exhaust, generator exhaust, solvents, oil, TYLOR-8 fuel) Contact and /or Suspected Exposure to other Environmental Pollution (burn pits) Occupational Exposure to Noise (helicopters) Contact and/or Suspected Exposure to Environmental Tobacco smoke Exposure to Disaster, War, or Other Hostilities DIAGNOSES AND PLAN Previously acknowledged service-connected conditions include: LUMBOSACRAL OR CERVICAL STRAIN (20%-SC) ALLERGIC OR VASOMOTOR RHINITIS (0%-SC) POST-TRAUMATIC STRESS DISORDER (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) Based upon the [place] history, the following symptoms were identified: * Chronic nasal congestion * Postnasal drip * Headache, unspecified * Dizziness, unspecified * Heartburn * Painful urination, unspecified * Urinary urgency * Urinary frequency * Abdominal pain, unspecified * Nausea * Diarrhea, unspecified * Constipation, unspecified * Numbness and tingling bilateral legs * Tremor, right hand, unspecified * Nervousness is working with [employer] and planning to submit claims through VBA OTHER HEALTH CONCERNS: Follow-up with PCP/specialists 1) GERD - continue to follow with GI, take medication as prescribed 2) BPH - continue to follow with Urology 3) PTSD, depression, anxiety - continue to follow with and t Center, take medication as prescribed [place] is a 38 y/o male who was 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 He had exposures to oil well fire smoke, burn pits, sand, dust, fine PM, aircraft exhaust, TYLOR-8 fuel, oil, solvents, generator exhaust, noise from helicopters, and secondhand cigarette smoke. 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 The has been advised that the information provided today and the medical data obtained during the examination allows [facility] to track patient demographics, medical diagnosis, and related medical data. Registry exams are limited to diagnostic and research purposes only. The has also been informed that by participating in the registry, the is consenting for the use and disclosure of information outside of [facility] to federal, state, and local government agencies to the extent permitted by the Privacy Act. No individual identifying information will be shared with any third parties outside the [facility] without the [place]'s consent advised that they receive a letter from the environmental health clinician. The [place] was advised to follow up with PCP on all medical conditions, particularly any treatment questions or concerns. [place] has been provided information about C&P and their VSO. Toxic Exposure Screening: The [place]/caregiver was asked if they believe the [place] experienced any toxic exposure(s), such as Airborne Hazards and Open Burn Pit, [place] War related exposures, Agent [place], Radiation, contaminated water at [place] or other such exposures, while serving in the Armed Forces. /caregiver believes the [place] was exposed to the following while serving in the Armed Forces: Airborne Hazards and Open Burn Pit: [place]/caregiver was made aware of educational resources that includes information on the Registry Program, presumptive conditions and how to file a claim. Printed information was offered and provided if desired. [place] War related exposures: [place]/caregiver was made aware of educational resources that includes information on the Registry Program, presumptive conditions and how to file a claim. Printed information was offered and provided if desired. [place]/caregiver has health or medical concerns related to their concern of environmental exposure. Concern: worsening physical and mental health No questions at this time [place]/caregiver was informed of local points of contact. Contact information for local resources: Benefits/Claim for Disability Compensation Questions:National [employer] [place] [facility] Enrollment: [facility] Eligibility direct dialed at [phone] Registry: [facility] Health Coordinator ext [phone] The following connections were provided to the /caregiver: No connections needed at this time /atif/ MARY ANNE WHELAN NURSE PRACTITIONER Signed: 03/01/2024 15:52 Receipt Acknowledged By: 03/01/2024 16:07 /atif/ OSCAR MARQUEZ PA-C STAFF PHYSICIAN VP PRODUCT MANAGEMENT GILMAR CR[facility]
--- NOTE | 2024-07-24 08:26 | MHC.OFFWIV ---
Intake Vital Signs 07/24/24 08:27 Height 5 ft 5 in Weight 174 lb 8 oz BMI 29.0 BP 110/70 Blood Pressure Location Lt brachial Position Sitting Pulse 72 Pulse Source Pulse Oximeter Temp 97.8 F Temp Source Oral Pulse Oximetry (%) 97 Oxygen Delivery Method Room Air Intake Visit Reasons: EP Cold sympt 3+ weeks Intake Note: Patient is here today for cold symptoms (Congestion, running nose, cough, no fever or chills) for the past three weeks. Neg to covid/flu/rsv. Patient Tobacco Use Status: Former Tobacco user Human Resources Administrator Required: No Routing Machine Operator: Not Required per policy Accompanied by: Self / Same As Patient Allergies acetaminophen [From Vicodin] Allergy (Mild, Verified 07/24/24 08:27) Itching hydrocodone [From Vicodin] Allergy (Mild, Verified 07/24/24 08:27) Itching Do you need a note to return to daycare/school/sports/work: No HPI HPI Comments History of Present Illness Details History - The patient is a 38-year-old male with past med hx of asthma and GERD presenting with a persistent cough lasting three weeks. - A chest and sinus x-ray by his PCP revealed no abnormalities and prednisone was prescribed without success in alleviating the cough. - The patient's received a Z-Braden for similar symptoms and experienced improvement. - Cough mainly disrupts sleep at night; however, there is no associated fever, and no sinus or ear pain. - Mild morning shortness of breath is noted, attributed likely to existing asthma, which he manages with albuterol. Physical Exam General: Cooperative, healthy appearing, comfortable and no acute distress Orientation/consciousness: Patient oriented x3 Limitations: No limitations Head: Normal to inspection Ears: Hearing grossly normal bilaterally, external ears normal and TM's normal bilaterally Nose: Normal external nose present, Normal nares present and No nasal discharge present Face and sinus: Normal facial exam and Yes sinuses nontender Mouth: Normal oral and palatal mucosa present and moist mucous membranes Throat: Yes tonsils normal, Yes uvula midline. Posterior oropharynx erythema Eyes: Appearance normal, both eyes and all related structures Neck: Normal visual inspection Respiratory: Clear to auscultation bilaterally. Normal respiratory effort, able to speak in complete sentences, Actively coughing, no respiratory distress, not tachypneic, no tripod positioning and no use of accessory muscles Cardiovascular: Regular rate and rhythm. Normal S1 and S2 Skin: No rashes or lesions noted Neuro: Patient oriented x3 Extremities: Normal to inspection and Yes no clubbing, cyanosis or edema PFSH Medical History ADD (attention deficit disorder) Anxiety PTSD (post-traumatic stress disorder) Surgical History H/O wisdom tooth extraction Family History Mother Breast cancer SLE (systemic lupus erythematosus) Alzheimer disease Colon cancer Father Hypertension Attention deficit disorder Maternal Grandfather Lung cancer Paternal Grandfather Lung cancer Maternal Uncle Colon cancer Social History Alcohol intake: current Alcohol intake frequency: a few times a month Patient Tobacco Use Status: Former Tobacco user Review of Systems Const All systems reviewed & are unremarkable except as noted in HPI and below Physical Exam Vital Signs: Last Vital Signs Temp 97.8 F 07/24/24 08:27 Pulse 72 07/24/24 08:27 BP 110/70 07/24/24 08:27 Pulse Ox 97 07/24/24 08:27 Oxygen Delivery Method Room Air 07/24/24 08:27 BMI result Body Mass Index 29.0 Assessment & Plan Assessment & Plan (1) URI, acute: Code(s): J06.9 - Acute upper respiratory infection, unspecified Plan: VSS, pt well appearing and PE unremarkable. The prescribed management includes a Z-Braden to address the suspected bacterial components of the prolonged cough. The patient will taper off prednisone as it showed no improvement in the cough symptoms. Night-time relief through [employer]al[employer] Perles will be employed, with ongoing monitoring based on symptom resolution. Asthma management remains unchanged, using albuterol as needed. Patient was informed and verbally consented to the use of an ambient scribe for clinic note documentation during this visit Medications: New azithromycin For 250 mg dose pack: take 500 mg today (day 1), then 250 mg for 4 days (days 2-5) PO 6 tabs 0RF Coding Level of Care Code New Pt Level 3 (30378) Diagnoses URI, acute J06.9
[2024-07-24 08:27] VITALS: BP 110/70; PULSE 72; TEMP 36.6; O2SAT 97; BMI 29.0
== END 2024-07-24 09:14 | disposition home or self-care (01) ==
PROVIDERS: PCP Internal Medicine; Visit Provider Physician Assistant
DX: J06.9 Acute upper respiratory infection, unspecified (principal)

== ENCOUNTER → 2024-07-24 07:59 | Outpatient (BNVA) | payer OTHER, SELFPAY | PROVIDERS: PCP Internal Medicine; Visit Provider Physician Assistant ==